=== PATIENT | male | born 1955 | race Caucasian/White ===

== ENCOUNTER 2020-05-05 06:41 | Outpatient (REF) | payer OTHER, SELFPAY ==
[2020-05-05 07:56] LABS: Basophils Absolute Auto 0.1 X10*3/uL (0.0-0.2); Basophils Percent Auto 0.4 % (0-2); Eosinophils Absolute Auto 0.4 X10*3/uL (0.0-0.4); Eosinophils Percent Auto 2.2 % (0-4); Hematocrit 45.4 % (42-52); Hemoglobin 15.3 g/dl (14.0-18.0); Imm Gran Abs Auto 0.03 X10*3/uL (0.00-0.03); Imm Gran Pct Auto 0.2 % (0.0-0.4); Lymphocytes Percent Auto 74.1 % (20-40); MANUAL DIFF FLAG SCAN; Mean Corpuscular HGB Conc 33.7 g/dl (31.0-36.0); Mean Corpuscular Hemoglobin 31.2 pg (27.0-33.0); Mean Corpuscular Volume 92.7 fL (80-98); Mean Platelet Volume 11.6 fL (9.4-12.4); Monocytes Absolute Auto 0.3 X10*3/uL (0.1-1.2); Monocytes Percent Auto 1.6 % (2-11); Neutrophils Absolute Auto 3.7 X10*3/uL (2.0-8.3); Neutrophils Percent Auto 21.5 % (45-73); Platelet Count 177 X10*3/uL (160-400); Red Cell Distribution Width 12.9 % (11.0-16.0); SCAN SMEAR FLAG 1; White Blood Count 17.1 X10*3/uL (4.8-10.8)
[2020-05-05 08:00] LABS: Lymphocytes Absolute Auto 12.7 X10*3/uL (1.2-4.9)
[2020-05-05 08:11] LABS: Alanine Aminotransferase 19 U/L (0-40); Albumin Level 4.6 g/dL (3.5-5.0); Alkaline Phosphatase 65 U/L (39-117); Anion Gap 12 (12-20); Aspartate Amino Transferase 15 U/L (5-37); Bilirubin Total 0.7 mg/dL (0.0-1.0); Blood Urea Nitrogen 17 mg/dL (9-16); Calcium 9.3 mg/dL (8.4-10.2); Carbon Dioxide 27 mmol/L (22-29); Chloride 107 mmol/L (96-108); Cholesterol 178 mg/dL; Estimated Glomerular Filt Rate > 60; Glucose Fasting 106 mg/dL (60-99); HDL Cholesterol 45 mg/dL; LDL Cholesterol Calculated 107 mg/dl; Potassium 4.4 mmol/l (3.3-5.1); Sodium 142 mmol/L (135-145); Total Protein 7.1 g/dL (6.5-8.0); Triglycerides 133 mg/dL
[2020-05-05 08:19] LABS: Glucose Urine UA NEG (NEG); Leukocyte Esterase Urine NEG (NEG); Nitrite Urine NEG (NEG); PH 5.5 (5.0-8.0); Specific Gravity - Urine 1.025 (1.005-1.025); Urine Blood NEG (NEG); Urine Ketones NEG (NEG); Urine Protein NEG (NEG-TRACE)
[2020-05-05 08:29] LABS: Appearance Urine CLEAR; Color Urine YELLOW
[2020-05-05 08:36] LABS: Prostate Specific Antigen Scr 1.28 ng/mL (<0.05-4.0)
[2020-05-05 10:51] LABS: SLIDE REVIEW VERIFIED
== END 2020-05-05 06:42 | disposition home or self-care (01) ==
LOC: HO.LAB 06:41
PROVIDERS: PCP Internal Medicine; Visit Provider Internal Medicine
DX: Z00.00 Encounter for general adult medical examination without abnormal findings (principal)
CPT/HCPCS: 36415; 80053; 80061; 81003; 84153; 85025

== ENCOUNTER 2020-05-29 16:19 | Outpatient (REF) | payer OTHER, SELFPAY ==
--- NOTE | 2020-05-29 | US_ITS ---
EXAMINATION: US VENOUS ULTRASOUND WITH DOPPLER LOWER EXTREMITY, LEFT CLINICAL INFORMATION: Edema at the knee. Pain of the knee. COMPARISON: None TECHNIQUE: Ultrasound of the deep veins is performed from the hip to the calf with compression sonography and color and pulse Doppler assessment. Spectral analysis with color-flow imaging is performed. FINDINGS: There is normal venous compression and respiratory variation and augmented flow. The visualized common femoral vein, superficial femoral vein, profunda femoral vein, popliteal vein, and the trifurcation region shows no evidence of deep venous thrombosis. There is a fluid collection at the knee posterior medial popliteal fossa measuring 3 x 1.5 x 3.5 cm If the patient's symptoms persist, followup ultrasound in 5 days 7 days might be of value to exclude proximal propagation from a non-visualized calf vein. US/US venous duplex LE LT IMPRESSION: 1. No DVT demonstrated in the left lower extremity. 2. Popliteal fossa cyst.
== END 2020-05-29 16:20 | disposition home or self-care (01) ==
LOC: HO.US 16:19
PROVIDERS: PCP Internal Medicine; Visit Provider Internal Medicine
DX: M25.562 Pain in left knee (principal); M25.462 Effusion, left knee
CPT/HCPCS: 93971

== ENCOUNTER 2020-06-22 16:05 | Outpatient (REF) | payer OTHER, SELFPAY ==
[2020-06-22 16:50] LABS: Influenza A PCR NEGATIVE (Negative); Influenza B PCR NEGATIVE (Negative); Resp Syncy Virus RNA Qual PCR NEGATIVE (Negative)
[2020-06-22 18:57] LABS: SARS COV2 PCR INHOUSE POSITIVE (Negative)
== END 2020-06-22 16:06 | disposition home or self-care (01) ==
LOC: HO.LNP 16:05
PROVIDERS: Visit Provider Internal Medicine
DX: Z20.828 Contact with and (suspected) exposure to other viral communicable diseases (principal); R05 Cough
CPT/HCPCS: 0241U

== ENCOUNTER 2021-01-26 06:58 | Day surgery (SDC) | payer OTHER, SELFPAY ==
[2021-01-26 07:20] VITALS: BP 141/86; PULSE 98; RESP 18; TEMP 37.2; O2SAT 95; BMI 31.1
--- NOTE | 2021-01-26 07:55 | HO.ANESPROP2 ---
PMFSH Past Medical History Medical History Hx of gout Surgical History Surgical History H/O colonoscopy History of meniscectomy of left knee Social History Social History Patient Tobacco Use Status: Former Tobacco user Use of substances other than those prescribed or required for medical reasons: No Are you DNR?: No Advance Directives: No Advance Directives Information Provided: Yes Meds Allergies Allergy/AdvReac Type Severity Reaction Status Date / Time doxycycline Allergy Severe Hives Verified 01/26/21 07:11 Active Medications: Current Medications Generic Name Dose Route Start Last Admin Trade Name Freq PRN Reason Stop Dose Admin Lactated Ringer's 500 mls @ 20 mls/hr 01/26/21 08:00 Lr IVCONT .Q24H CAR Exam Exam Date and Time: January 26, 2021 0755 Height,Weight and Vital Signs: Height 5 ft 10 in Weight 98.43 kg Last Vital Signs Temp 98.9 F 01/26/21 07:20 Pulse 98 01/26/21 07:20 Resp 18 01/26/21 07:20 BP 141/86 H 01/26/21 07:20 Pulse Ox 95 01/26/21 07:20 Airway Mallampati Class: II TM Dist: >3cm Neck ROM: Full Heart: RRR Lungs: CYA
[2021-01-26] MEDS: Lactated Ringers 500 ML 20 ML IVCONT (08:02)
--- NOTE | 2021-01-26 08:14 | MHC.SHP ---
Pre-Procedural Eval Section A Date of Service: 01/26/21 Section B Chief Complaint: screening Details of Present Illness: screening Relevant Family History (Specify if Yes): No Relevant Social History: None Present Medications: see Short Stay Collaborative assessment Medical History: No relevant PMH History of Previous Operations: No relevant previous surgery Allergies: Allergies Allergy/AdvReac Type Severity Reaction Status Date / Time doxycycline Allergy Severe Hives Verified 01/26/21 07:11 Review of Systems Sugical H&P ROS: Negative: Constitution, Cardiovascular, Respiratory, Neurological, Psychiatric, Hem-Onc, Allergic/Immunologic, Gastrointestinal, Genitourinary, Musculoskeletal, Integumentary, Endocrine and Eyes/Ears/Nose/Throat Exam Surgical H&P Exam: Normal: HEENT, Normal: Heart, Normal: Lungs, Normal: Extremities, Normal: Abdomen, Normal: Skin and Normal: Neurological Plan Diagnosis/Plan: Unchanged I have reviewed the history and physical and performed a pertinent physical examination on my patient. No changes have occurred unless specified.
[2021-01-26 08:37] VITALS: BP 112/68; PULSE 88; RESP 16; TEMP 36.1; O2SAT 93
--- NOTE | 2021-01-26 08:37 | PM.OP ---
Brief Operative Note Date of Service: 01/26/21 Pre-op diagnosis: screening Post-op diagnosis: same Procedure: colonoscopy Surgeon: Paulino Hess Anesthesia: MAC Was an Systems Support Officer used for this Procedure?: No Estimated blood loss (mL): 0 Pathology: none sent Condition: stable Disposition: PACU
[2021-01-26 08:52] VITALS: BP 129/88; PULSE 74; RESP 16; TEMP 36.1; O2SAT 94
--- NOTE | 2021-01-26 11:12 | HO.POSTANES ---
Post Anesthesia Evaluation Post Anesthesia Evaluation Vital Signs: Vital Signs Temp Pulse Resp BP Pulse Ox 01/26/21 08:52 97 F 74 16 129/88 94 01/26/21 08:37 97 F 88 16 112/68 93 01/26/21 07:20 98.9 F 98 18 141/86 H 95 Anesthesia: Monitored Mental Status: Awake Pain Control: Satisfactory Nausea/Vomiting: None Hydration: Adequate Anesthesia-Related Issues: No Anes. Related Issues
--- NOTE | 2021-01-26 18:58 | OP_ITS ---
SURGEON: Paulino Hess MD INDICATIONS: Colon cancer screening. PREOPERATIVE DIAGNOSIS: POSTOPERATIVE DIAGNOSIS: PROCEDURE PERFORMED: Colonoscopy to the terminal ileum. ESTIMATED BLOOD LOSS: COMPLICATIONS: ANESTHESIA: ASSISTANTS: SPECIMENS: MEDICATIONS: Monitored anesthesia care. DESCRIPTION OF PROCEDURE: History and physical performed. The risks and benefits of the procedure were explained to the patient. Informed consent was obtained. The patient was placed in the left lateral decubitus position. A digital rectal exam was performed and was found to be normal. The Olympus pediatric video colonoscope was introduced into the rectum and advanced to the cecum without difficulty. The cecum was identified by transillumination, palpation, and identification of ileocecal valve. Examination was performed. The scope was removed. He tolerated the procedure well and was taken to recovery area in stable condition. FINDINGS: The terminal ileum was normal. The visualized colonic mucosa was normal. The quality of the prep was good. No polyps were identified. There was pandiverticulosis. Retroflexed examination showed small internal hemorrhoids. IMPRESSION: Negative screening colonoscopy. RECOMMENDATION: 1. Follow up as needed. 2. Repeat colonoscopy is recommended in 10 years for average risk individuals. MD DIAMOND Fragoso/TONYL / [phone]
== END 2021-01-26 09:09 | disposition home or self-care (01) ==
PROVIDERS: PCP Internal Medicine; Visit Provider Internal Medicine Gastroenterology
PROC: 0DJD8ZZ Inspection of Lower Intestinal Tract, Via Natural or Artificial Opening Endoscopic (ICD-10-PCS; CPT 45378; principal; 2021-01-26 08:10)
DX: Z12.11 Encounter for screening for malignant neoplasm of colon (principal); K57.30 Diverticulosis of large intestine without perforation or abscess without bleeding; K64.8 Other hemorrhoids; Z79.899 Other long term (current) drug therapy; Z88.1 Allergy status to other antibiotic agents; Z87.891 Personal history of nicotine dependence
CPT/HCPCS: 45378

== ENCOUNTER 2022-04-12 06:54 | Outpatient (REF) | payer OTHER, SELFPAY ==
[2022-04-12 07:32] LABS: Basophils Absolute Auto 0.1 X10*3/uL (0.0-0.2); Basophils Percent Auto 0.4 % (0-2); Eosinophils Absolute Auto 0.3 X10*3/uL (0.0-0.4); Eosinophils Percent Auto 1.5 % (0-4); Hematocrit 44.9 % (42.0-52.0); Hemoglobin 15.6 g/dl (14.0-18.0); Imm Gran Abs Auto 0.03 X10*3/uL (0.00-0.03); Imm Gran Pct Auto 0.2 % (0.0-0.4); MANUAL DIFF FLAG SCAN; Mean Corpuscular HGB Conc 34.7 g/dl (31.0-36.0); Mean Corpuscular Hemoglobin 31.9 pg (27.0-33.0); Mean Corpuscular Volume 91.8 fL (80.0-98.0); Mean Platelet Volume 11.3 fL (9.4-12.4); Monocytes Absolute Auto 0.3 X10*3/uL (0.1-1.2); Monocytes Percent Auto 1.7 % (2-11); Neutrophils Absolute Auto 3.1 x10*3/uL (2.0-8.3); Neutrophils Percent Auto 19.2 % (45-73); Platelet Count 160 X10*3/uL (160-400); Red Blood Count 4.89 X10*6/uL (4.60-5.80); Red Cell Distribution Width 12.7 % (11.0-16.0); SCAN SMEAR FLAG 1; White Blood Count 16.3 X10*3/uL (4.8-10.8)
[2022-04-12 07:34] LABS: Lymphocytes Absolute Auto 12.5 X10*3/uL (1.2-4.9)
[2022-04-12 07:37] LABS: Estimated Average Glucose 97 mg/dL
[2022-04-12 07:59] LABS: Alanine Aminotransferase 29 U/L (0-40); Albumin Level 4.6 g/dL (3.5-5.0); Alkaline Phosphatase 72 U/L (39-117); Anion Gap 14 (12-20); Aspartate Amino Transferase 21 U/L (5-37); Blood Urea Nitrogen 15 mg/dL (9-16); Calcium 9.2 mg/dL (8.4-10.2); Carbon Dioxide 28 mmol/L (22-29); Chloride 104 mmol/L (96-108); Cholesterol 179 mg/dL; Estimated Glomerular Filt Rate > 60; Glucose Fasting 103 mg/dL (60-99); HDL Cholesterol 45 mg/dL; LDL Cholesterol Calculated 111 mg/dl; Potassium 4.6 mmol/L (3.3-5.1); Sodium 141 mmol/L (135-145); Total Protein 7.3 g/dL (6.5-8.0); Triglycerides 119 mg/dL
[2022-04-12 08:01] LABS: Appearance Urine Clear; Color Urine Yellow; Glucose Urine UA Negative (Negative); Leukocyte Esterase Urine Negative (Negative); Nitrite Urine Negative (Negative); PH 5.5 (5.0-9.0); UMIC TRIGGER UA YES; Urine Blood Negative (Negative); Urine Ketones Negative (Negative); Urine Protein Negative (Neg-Trace)
[2022-04-12 08:08] LABS: Lactate Dehydrogenase 179 U/L (118-273); Uric Acid 7.8 mg/dL (3.4-7.0)
[2022-04-12 08:12] LABS: SLIDE REVIEW VERIFIED
[2022-04-12 08:21] LABS: Prostate Specific Antigen 1.32 ng/mL (<0.05-4.0)
== END 2022-04-12 06:55 | disposition home or self-care (01) ==
LOC: HO.LAB 06:54
PROVIDERS: PCP Internal Medicine; Visit Provider Internal Medicine
DX: Z00.00 Encounter for general adult medical examination without abnormal findings (principal); Z12.5 Encounter for screening for malignant neoplasm of prostate; M10.9 Gout, unspecified
CPT/HCPCS: 36415; 80053; 80061; 81001; 81003; 83036; 83615; 84153; 84550; 85025

== ENCOUNTER 2022-05-03 14:07 | Outpatient (REF) | payer OTHER, SELFPAY ==
[2022-05-03 17:39] LABS: Lactate Dehydrogenase 241 U/L (118-273)
== END 2022-05-03 14:08 | disposition home or self-care (01) ==
LOC: HO.LAB 14:07
PROVIDERS: Pathology Anatomic Pathology & Clinical Pathology; PCP Internal Medicine; Visit Provider Internal Medicine Medical Oncology
DX: C91.10 Chronic lymphocytic leukemia of B-cell type not having achieved remission (principal); D47.9 Neoplasm of uncertain behavior of lymphoid, hematopoietic and related tissue, unspecified
CPT/HCPCS: 36415; 82232; 83615; 86335; 88184; 88185; 88275; 88374

== ENCOUNTER 2022-08-09 15:10 | Outpatient (REF) | payer OTHER, SELFPAY ==
[2022-08-09 15:21] LABS: MANUAL DIFF FLAG NO
[2022-08-09 16:02] LABS: Basophils Absolute Auto 0.1 X10*3/uL (0.0-0.2); Basophils Percent Auto 0.3 % (0-2); Eosinophils Absolute Auto 0.2 X10*3/uL (0.0-0.4); Eosinophils Percent Auto 1.5 % (0-4); Hematocrit 46.3 % (42.0-52.0); Hemoglobin 15.7 g/dl (14.0-18.0); Imm Gran Abs Auto 0.03 X10*3/uL (0.00-0.03); Imm Gran Pct Auto 0.2 % (0.0-0.4); Lymphocytes Percent Auto 71.2 % (20-40); Mean Corpuscular HGB Conc 33.9 g/dl (31.0-36.0); Mean Corpuscular Hemoglobin 30.9 pg (27.0-33.0); Mean Corpuscular Volume 91.1 fL (80.0-98.0); Mean Platelet Volume 11.8 fL (9.4-12.4); Monocytes Absolute Auto 0.3 X10*3/uL (0.1-1.2); Monocytes Percent Auto 2.1 % (2-11); Neutrophils Absolute Auto 3.8 x10*3/uL (2.0-8.3); Neutrophils Percent Auto 24.7 % (45-73); Platelet Count 177 X10*3/uL (160-400); Red Blood Count 5.08 X10*6/uL (4.60-5.80); Red Cell Distribution Width 12.8 % (11.0-16.0); SCAN SMEAR FLAG 1; White Blood Count 15.5 X10*3/uL (4.8-10.8)
[2022-08-09 16:12] LABS: Lymphocytes Absolute Auto 11.1 X10*3/uL (1.2-4.9)
[2022-08-09 16:32] LABS: Alanine Aminotransferase 19 U/L (0-40); Albumin Level 4.8 g/dL (3.5-5.0); Alkaline Phosphatase 69 U/L (39-117); Anion Gap 14 (12-20); Aspartate Amino Transferase 18 U/L (5-37); Bilirubin Total 0.8 mg/dL (0.0-1.0); Blood Urea Nitrogen 16 mg/dL (9-16); Calcium 10.2 mg/dL (8.4-10.2); Carbon Dioxide 27 mmol/L (22-29); Chloride 104 mmol/L (96-108); Estimated Glomerular Filt Rate > 60; Glucose Random 90 mg/dL (60-115); Potassium 4.4 mmol/L (3.3-5.1); Sodium 141 mmol/L (135-145); Total Protein 7.4 g/dL (6.5-8.0)
[2022-08-11 13:13] LABS: Beta-2 Microglobulin, Serum 2.04 mg/L (< OR = 2.51)
== END 2022-08-09 15:11 | disposition home or self-care (01) ==
LOC: HO.LAB 15:10
PROVIDERS: PCP Internal Medicine; Visit Provider Internal Medicine Medical Oncology
DX: D36.9 Benign neoplasm, unspecified site (principal)
CPT/HCPCS: 36415; 80053; 82232; 85025

== ENCOUNTER 2022-11-18 14:42 | Outpatient (REF) | payer OTHER, SELFPAY ==
[2022-11-18 14:58] LABS: MANUAL DIFF FLAG NO
[2022-11-18 15:30] LABS: Basophils Absolute Auto 0.1 X10*3/uL (0.0-0.2); Basophils Percent Auto 0.3 % (0-2); Eosinophils Absolute Auto 0.3 X10*3/uL (0.0-0.4); Eosinophils Percent Auto 1.9 % (0-4); Hematocrit 42.8 % (42.0-52.0); Hemoglobin 14.5 g/dl (14.0-18.0); Imm Gran Abs Auto 0.04 X10*3/uL (0.00-0.03); Imm Gran Pct Auto 0.3 % (0.0-0.4); Lymphocytes Percent Auto 71.1 % (20-40); Mean Corpuscular HGB Conc 33.9 g/dl (31.0-36.0); Mean Corpuscular Hemoglobin 31.4 pg (27.0-33.0); Mean Corpuscular Volume 92.6 fL (80.0-98.0); Mean Platelet Volume 11.8 fL (9.4-12.4); Monocytes Absolute Auto 0.4 X10*3/uL (0.1-1.2); Monocytes Percent Auto 2.8 % (2-11); Neutrophils Absolute Auto 3.5 x10*3/uL (2.0-8.3); Neutrophils Percent Auto 23.6 % (45-73); Platelet Count 148 X10*3/uL (160-400); Red Blood Count 4.62 X10*6/uL (4.60-5.80); Red Cell Distribution Width 13.2 % (11.0-16.0); SCAN SMEAR FLAG 1; White Blood Count 14.8 X10*3/uL (4.8-10.8)
[2022-11-18 15:35] LABS: Lymphocytes Absolute Auto 10.5 X10*3/uL (1.2-4.9)
[2022-11-18 16:00] LABS: Alanine Aminotransferase 20 U/L (0-40); Albumin Level 4.4 g/dL (3.5-5.0); Alkaline Phosphatase 71 U/L (39-117); Anion Gap 15 (12-20); Aspartate Amino Transferase 16 U/L (5-37); Bilirubin Total 0.8 mg/dL (0.0-1.0); Blood Urea Nitrogen 16 mg/dL (9-16); Calcium 9.2 mg/dL (8.4-10.2); Carbon Dioxide 27 mmol/L (22-29); Chloride 108 mmol/L (96-108); Estimated Glomerular Filt Rate > 60; Glucose Random 99 mg/dL (60-115); Potassium 4.8 mmol/L (3.3-5.1); Sodium 145 mmol/L (135-145); Total Protein 6.5 g/dL (6.5-8.0)
[2022-11-22 12:53] LABS: Beta-2 Microglobulin, Serum 1.76 mg/L (< OR = 2.51)
== END 2022-11-18 14:43 | disposition home or self-care (01) ==
LOC: HO.LAB 14:42
PROVIDERS: Visit Provider Internal Medicine Medical Oncology
DX: D72.820 Lymphocytosis (symptomatic) (principal); D36.9 Benign neoplasm, unspecified site
CPT/HCPCS: 36415; 80053; 82232; 85025

== ENCOUNTER 2023-03-24 14:25 | Outpatient (REF) | payer OTHER, SELFPAY ==
[2023-03-24 15:19] LABS: Basophils Absolute Auto 0.1 X10*3/uL (0.0-0.2); Basophils Percent Auto 0.5 % (0-2); Eosinophils Absolute Auto 0.2 X10*3/uL (0.0-0.4); Eosinophils Percent Auto 1.1 % (0-4); Hematocrit 43.9 % (42.0-52.0); Hemoglobin 15.4 g/dl (14.0-18.0); Imm Gran Abs Auto 0.03 X10*3/uL (0.00-0.03); Imm Gran Pct Auto 0.2 % (0.0-0.4); Lymphocytes Percent Auto 69.2 % (20-40); MANUAL DIFF FLAG SCAN; Mean Corpuscular HGB Conc 35.1 g/dl (31.0-36.0); Mean Corpuscular Hemoglobin 32.5 pg (27.0-33.0); Mean Corpuscular Volume 92.6 fL (80.0-98.0); Mean Platelet Volume 11.7 fL (9.4-12.4); Monocytes Absolute Auto 0.4 X10*3/uL (0.1-1.2); Monocytes Percent Auto 2.8 % (2-11); Neutrophils Absolute Auto 3.9 x10*3/uL (2.0-8.3); Neutrophils Percent Auto 26.2 % (45-73); Platelet Count 157 X10*3/uL (160-400); Red Blood Count 4.74 X10*6/uL (4.60-5.80); Red Cell Distribution Width 12.8 % (11.0-16.0); SCAN SMEAR FLAG 1; White Blood Count 14.9 X10*3/uL (4.8-10.8)
[2023-03-24 15:20] LABS: Lymphocytes Absolute Auto 10.3 X10*3/uL (1.2-4.9)
[2023-03-24 15:45] LABS: SLIDE REVIEW VERIFIED
[2023-03-24 15:47] LABS: Alanine Aminotransferase 26 U/L (0-40); Albumin Level 4.7 g/dL (3.5-5.0); Alkaline Phosphatase 67 U/L (39-117); Anion Gap 11 (12-20); Aspartate Amino Transferase 23 U/L (5-37); Bilirubin Total 0.7 mg/dL (0.0-1.0); Blood Urea Nitrogen 14 mg/dL (9-16); Calcium 9.7 mg/dL (8.4-10.2); Carbon Dioxide 27 mmol/L (22-29); Chloride 107 mmol/L (96-108); Estimated Glomerular Filt Rate > 60; Glucose Random 88 mg/dL (60-115); Potassium 4.2 mmol/L (3.3-5.1); Sodium 141 mmol/L (135-145); Total Protein 7.4 g/dL (6.5-8.0)
[2023-03-27 11:38] LABS: Beta-2 Microglobulin, Serum 1.75 mg/L (< OR = 2.51)
== END 2023-03-24 14:26 | disposition home or self-care (01) ==
LOC: HO.LAB 14:25
PROVIDERS: PCP Internal Medicine; Visit Provider Internal Medicine Medical Oncology
DX: C91.10 Chronic lymphocytic leukemia of B-cell type not having achieved remission (principal)
CPT/HCPCS: 36415; 80053; 82232; 85025

== ENCOUNTER 2023-08-04 14:24 | Outpatient (REF) | payer MEDICARE, OTHER, SELFPAY | END 2023-08-04 14:25 | disposition home or self-care (01) | LOC: HO.LAB 14:24 | PROVIDERS: PCP Internal Medicine; Visit Provider Internal Medicine Medical Oncology | DX: C91.10 Chronic lymphocytic leukemia of B-cell type not having achieved remission (principal); E66.9 Obesity, unspecified | CPT/HCPCS: 36415; 80053; 80061; 85007; 85025; 85027 ==

== ENCOUNTER 2024-03-01 10:48 | Outpatient (REF) | payer MEDICARE, OTHER, SELFPAY ==
[2024-03-01 12:01] LABS: Basophils Absolute Auto 0.1 X10*3/uL (0.0-0.2); Basophils Percent Auto 0.3 % (0-2); Eosinophils Absolute Auto 0.3 X10*3/uL (0.0-0.4); Eosinophils Percent Auto 1.5 % (0-4); Hematocrit 43.7 % (42.0-52.0); Hemoglobin 15.4 g/dl (14.0-18.0); Imm Gran Abs Auto 0.03 X10*3/uL (0.00-0.03); Imm Gran Pct Auto 0.2 % (0.0-0.4); MANUAL DIFF FLAG SCAN; Mean Corpuscular HGB Conc 35.2 g/dl (31.0-36.0); Mean Corpuscular Hemoglobin 32.4 pg (27.0-33.0); Mean Platelet Volume 11.5 fL (9.4-12.4); Monocytes Absolute Auto 0.5 X10*3/uL (0.1-1.2); Monocytes Percent Auto 2.6 % (2-11); Neutrophils Absolute Auto 2.9 x10*3/uL (2.0-8.3); Neutrophils Percent Auto 15.4 % (45-73); Platelet Count 169 X10*3/uL (160-400); Red Blood Count 4.75 X10*6/uL (4.60-5.80); Red Cell Distribution Width 13.1 % (11.0-16.0); SCAN SMEAR FLAG 1; White Blood Count 18.9 X10*3/uL (4.8-10.8)
[2024-03-01 12:04] LABS: Lymphocytes Absolute Auto 15.1 X10*3/uL (1.2-4.9)
[2024-03-01 12:30] LABS: SLIDE REVIEW VERIFIED
[2024-03-01 12:40] LABS: Alanine Aminotransferase 22 U/L (0-40); Albumin Level 4.5 g/dL (3.5-5.0); Alkaline Phosphatase 67 U/L (39-117); Anion Gap 11 (12-20); Aspartate Amino Transferase 17 U/L (5-37); Bilirubin Total 0.6 mg/dL (0.0-1.0); Blood Urea Nitrogen 15 mg/dL (9-16); Calcium 9.6 mg/dL (8.4-10.2); Carbon Dioxide 28 mmol/L (22-29); Chloride 108 mmol/L (96-108); Estimated Glomerular Filt Rate > 60; Glucose Random 103 mg/dL (60-115); Potassium 4.4 mmol/L (3.3-5.1); Sodium 143 mmol/L (135-145); Total Protein 7.1 g/dL (6.5-8.0)
[2024-03-04 10:39] LABS: Beta-2 Microglobulin, Serum 1.82 mg/L (< OR = 2.51)
== END 2024-03-01 10:49 | disposition home or self-care (01) ==
LOC: HO.LAB 10:48
PROVIDERS: PCP Internal Medicine Medical Oncology; Visit Provider Internal Medicine Medical Oncology
DX: C91.10 Chronic lymphocytic leukemia of B-cell type not having achieved remission (principal); E66.9 Obesity, unspecified
CPT/HCPCS: 36415; 80053; 82232; 85025

== ENCOUNTER 2024-08-08 14:59 | Outpatient (REF) | payer MEDICARE, OTHER, SELFPAY ==
[2024-08-08 15:32] LABS: Basophils Absolute Auto 0.1 X10*3/uL (0.0-0.2); Basophils Percent Auto 0.4 % (0-2); Eosinophils Absolute Auto 0.2 X10*3/uL (0.0-0.4); Eosinophils Percent Auto 1.1 % (0-4); Hematocrit 46.5 % (42.0-52.0); Hemoglobin 15.7 g/dl (14.0-18.0); Imm Gran Abs Auto 0.04 X10*3/uL (0.00-0.03); Imm Gran Pct Auto 0.2 % (0.0-0.4); Lymphocytes Percent Auto 73.5 % (20-40); MANUAL DIFF FLAG SCAN; Mean Corpuscular HGB Conc 33.8 g/dl (31.0-36.0); Mean Corpuscular Hemoglobin 31.7 pg (27.0-33.0); Mean Corpuscular Volume 93.8 fL (80.0-98.0); Mean Platelet Volume 10.9 fL (9.4-12.4); Monocytes Absolute Auto 0.4 X10*3/uL (0.1-1.2); Monocytes Percent Auto 2.3 % (2-11); Neutrophils Absolute Auto 3.7 x10*3/uL (2.0-8.3); Neutrophils Percent Auto 22.5 % (45-73); Platelet Count 166 X10*3/uL (160-400); Red Blood Count 4.96 X10*6/uL (4.60-5.80); Red Cell Distribution Width 13.2 % (11.0-16.0); SCAN SMEAR FLAG 1; White Blood Count 16.6 X10*3/uL (4.8-10.8)
[2024-08-08 15:44] LABS: Lymphocytes Absolute Auto 12.2 X10*3/uL (1.2-4.9)
[2024-08-08 16:22] LABS: Alanine Aminotransferase 31 U/L (0-40); Albumin Level 4.5 g/dL (3.5-5.0); Alkaline Phosphatase 68 U/L (39-117); Anion Gap 11 (12-20); Aspartate Amino Transferase 23 U/L (5-37); Bilirubin Total 0.7 mg/dL (0.0-1.0); Blood Urea Nitrogen 18 mg/dL (9-16); Calcium 9.3 mg/dL (8.4-10.2); Carbon Dioxide 29 mmol/L (22-29); Chloride 106 mmol/L (96-108); Estimated Glomerular Filt Rate > 60; Glucose Random 93 mg/dL (60-115); Potassium 4.6 mmol/L (3.3-5.1); Sodium 141 mmol/L (135-145); Total Protein 7.1 g/dL (6.5-8.0)
[2024-08-08 16:27] LABS: Uric Acid 7.7 mg/dL (3.4-7.0)
--- OUTSIDE RECORDS SUMMARY | 2024-08-08 16:45 | XMS_ITS ---
Author Organization Manav Espitia III, MD Address [address] [place] [address] Care Team Providers Care Non Clinical Advisor Name Role Phone Lennox Smith MD Primary Care Provider Unavaila Manav Cm Unavailable [phone] REASON FOR VISIT follow up Social History Sex Assigned At : Social History Observation Description Sex Assigned At Male Encounters Encounter Location Date Provider Diagnosis Manav Espitia III, MD [address] [place] [address] [place] [address] 02/23/2024 Manav Espitia Plan Of Treatment Next Appt Details Provider Name:Manav Espitia, 08/14/2024 10:45:00 AM, [address] [place] [address] [place], [address], Progress Notes * Darnell SANTIAGODOB:1955 (68 yo M)Acc No.[id number]:02/23/2024 Progress Notes Patient:?Darnell SANTIAGO Provider:?Manav Espitia MD :1955???Age:68 Y???Sex:Male Russ e:02/23/2024 Address:[id number] Pcp:Lennox Smith MD Subjective: * Chief Complaints: * ???1. Follow up. * Medical History:? Objective: * Vitals:? Assessment: Plan: * Treatment: * Images: * The named appointment provid er may or may not be the originator of this progress note, and it is not deemed complete until electronically signed by the appointment provider. Sign off status: Pending * Provider:?Manav Espitia MD Date:?01/29 Generated for Ludmila espinoza/Cristobal/Harry on:?08/08/2024 04:45 PM EST
--- OUTSIDE RECORDS SUMMARY | 2024-08-08 16:45 | XMS_ITS ---
Author Organization Manav Espitia III, MD Address [address] [place] [address] Care Team Providers Care Venture Capital Analyst Name Role Phone Lennox Smith MD Primary Care Provider Manav Arana Unavailable [phone] Allergies Allergen (clinical drug ingredient) Drug/Non Drug [...] Date Provider Diagnosis Manav Espitia III, MD [address] [place] [address] [place] [address] 07/10/2024 Manav Espitia Chronic lymphocytic leukemia C91.10 [...] DAY Oral Next Appt Details Provider Name:Manav Espitia, 08/14/2024 10:45:00 AM, [address] [place] [address] [place], [address], Progress Notes * STACEYDALYDarnell HyattDOB:1955 (68 yo M)Acc No.[id number]:07/10/2024 Progress Notes Patient:?Darnell SANTIAGO Provider:?Manav Espitia MD :1955???Age:68 Y???Sex:Male Russ e:07/10/2024 Address:[address] [place] [address] [address] [id number] Pcp:Lennox Smith MD Subjective: * Chief Complaints: * ???1. Follow up. * HPI: ???COVID-19 Screening:?Questions?Have you had any new onset fever, chills, cough, congestion, sore throat, shortness of breath, muscle aches??No ?Have you been exposed to the virus within the last 10 days??No ?Have you travelled internationally in the last 10 days??No ?Have you been exposed to COVID-19 in the past??No * ROS:?General/Constitutional:?pain?only normal aches and pains.?Chills?denies.?Fatigue?admits.?Fever?denies.?ENT:?Decreased hearing?denies.?Respiratory:?Cough?denies.?Cardiovascular:?Chest pain with exertion?denies.?Dyspnea on exertion?denies.?Shortness of breath?denies.?Gastrointestinal:?Constipation?denies.?Decreased appetite?denies.?Diarrhea?denies.?Heartburn?denies.?Nausea?denies.?Rectal bleeding?denies.?Vomiting?denies.?Hematology:?bruising?denies.?petechiae?denies.?Swollen glands?none have been noted.?Genitourinary:?Frequent urination?denies.?Musculoskeletal:?Muscle aches?denies.?Painful joints?denies.?Sciatica?denies.?Weakness?denies.?Skin:?Itching?denies.?Rash?denies.?Skin lesion(s)?denies.?Neurologic:?Difficulty speaking?denies.?Dizziness?denies.?Headache?denies.?Low back pain?denies.?Psychiatric:?Depressed mood?denies.? * Medical History:?Gout with h yperuricemia, Doxycycline allergy, Varicose veins, Umbilical hernia, Lymphocytosis, Osteoarthritis, Tubular adenomatous, Obesity, Varicose veins. * Surgical History:?Left knee meniscus surgery 2006, Colonoscopy, tubular adenoma, Dr. Manav Wilks, [facility] 12/2020. * Hospitalization/Major Diagno stic Procedure:?Denies Past Hospitalization. * Family History:?Father: dece ased 56 yrs, cad, in sleep, diagnosed with CVD.?Mother: 80 yrs, old age.?1 daughter(s) - healthy. .? His father at a young age of coronary artery disease. His mother of old age. There is no family history of gastrointestinal malignancy or lymphoproliferative disorders. He has 1 daughter who is healthy and well. * Social History:?Tobacco Use:?Tobacco Use/Smoking?Patient is a?former smoker ?How long has it been since you last smoked??> 10 years ?Additional Findings: Tobacco Non-User?Ex-cigarette smoker ???He was born in [facility] in [place], [place]. He is single now. His significant other recently leaving him with one stepdaughter, Aung, who is healthy and well. His daughter works in medical oncology at [employer]. 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 He does not smoke or drink. He is a former smoker. * Medications:?Taking Allopuri nol 300 MG Tablet TAKE 1 TABLET BY MOUTH EVERY DAY Oral , Medication List reviewed and reconciled with the patient * Allergies:?Doxycycline: hive s. Objective: * Vitals:? * Examination: ???General Examination: ?GENERAL APPEARANCE:?pleasant, well nourished, well developed, in no acute distress, calm and relaxed.?HEAD:?atraumatic, normocephalic.?EYES:?eomi, perrla, anicteric, conjugate.?EARS:?normal.?NOSE:?septum intact.?ORAL CAVITY:?normal, unremarkable.?NECK/THYROID:?no jugular venous distention, no carotid bruit, thyroid normal.?LYMPH NODES:?no enlarged lymph nodes,spleen normal.?SKIN:?no suspicious lesions, anicteric.?HEART:?no clicks, gallops, murmurs, or rubs, regular rhythm, S1, S2 normal, no s3, or vascular bruits.?LUNGS:?clear to auscultation .?BREASTS:??no masses palpable bilaterally.?ABDOMEN:?bowel sounds normal, no ascites, no organomegaly, no mass.?RECTAL EXAM:?not examined.?MUSCULOSKELETAL:?extremities unremarkable, no clubbing, cyanosis or edema.?PERIPHERAL PULSES:?normal.?NEUROLOGIC:?alert and oriented, cranial nerves 2-12 grossly intact, deep tendon reflexes 2+ symmetrical, motor strength normal upper and lower extremities, sensory exam intact.?PSYCH:?alert, oriented.? Assessment: * Assessment: 1.?Chronic lymphocytic leuke craig - C91.10???Notes :He remains stable at an early stage. No treatment is needed. Surveillance will continue. He is asymptomatic.??? Plan: * Treatment: * Images: * The named appointment provid er may or may not be the originator of this progress note, and it is not deemed complete until electronically signed by the appointment provider. Sign off status: Pending * Provider:?Manav Espitia MD Date:?06/30 Generated for Martini alexis/Cristobal/eTransmitting on:?08/08/2024 04:44 PM EST History and Physical Notes * HPI (History of Present Illness) Category Sub-Category Detail Notes COVID-19 Screening Questions Have you had any new onset fever, chills, cough, congestion, sore throat, shortness of breath, muscle aches?: No Have you been exposed to the virus withi n the last 10 days?: No Have you travelled internationally in [facility] last 10 days?: No Have you [...]
--- OUTSIDE RECORDS SUMMARY | 2024-08-08 16:45 | XMS_ITS ---
Author Organization Manav Espitia III, MD Address [address] [place] [address] Care Team Providers Care Solutions Executive Security Name Role Phone Lennox Smith MD Primary Care Provider Manav Arana Unavailable [phone] Allergies Allergen (clinical drug ingredient) Drug/Non Drug [...] Date Provider Diagnosis Manav Espitia III, MD [address] [place] [address] [place] [address] 03/06/2024 Manav Espitia Chronic lymphocytic leukemia C91.10 [...] Months, Reason: ov review labs Provider Name:Manav Espitia, 08/14/2024 10:45:00 AM, [address] [place] [address] [address], [place], [address], Progress Notes * Darnell SANTIAGO:1955 (68 yo M)Acc No.[id number]:03/06/2024 Progress Notes Patient:Darnell Randle Provider:?Manav Espitia MD :1955???Age:68 Y???Sex:Male Russ e:03/06/2024 Address:[facility] [place], [id number] Pcp:Lennox Smith MD Subjective: * Chief Complaints: * ???Chronic lymphocytic lymph omaGoutObesityUmbilical hernia * HPI: ???COVID-19 Screening:? He returns for ongoing follow-up of his CLL. He has no symptoms. He denies any abdominal pain fevers or chills or weight loss. On his examination today there was no adenopathy or splenomegaly. His blood work was unremarkable. Splenic blood cell count was slightly higher at 18,000. He is asymptomatic and will be observed. ?Questions?Have you experienced fever, chills, cough, sore throat, shortness of breath, difficulty breathing, muscle aches, loss of taste or smell??No ?Have you been exposed to the virus within the last 10 days??No ?Have you travelled internationally in the last 10 days??No ?Have you been exposed to COVID-19 in the past??Yes * ROS:?General/Constitutional:?pain?only normal aches and pains.?Chills?denies.?Fatigue?admits.?Fever?denies.?ENT:?Decreased hearing?denies.?Respiratory:?Cough?denies.?Cardiovascular:?Chest pain with exertion?denies.?Dyspnea on exertion?denies.?Shortness of breath?denies.?Gastrointestinal:?Constipation?occasional.?Decreased appetite?denies.?Diarrhea?denies.?Heartburn?denies.?Nausea?denies.?Rectal bleeding?denies.?Vomiting?denies.?Hematology:?bruising?denies.?petechiae?denies.?Swollen glands?none have been noted.?Genitourinary:?Frequent urination?once a night.?Musculoskeletal:?Muscle aches?denies.?Painful joints?denies.?Sciatica?denies.?Weakness?denies.?Skin:?Itching?denies.?Rash?denies.?Skin lesion(s)?denies.?Neurologic:?Difficulty speaking?denies.?Dizziness?denies.?Headache?denies.?Low back pain?denies.?Psychiatric:?Depressed mood?denies.? * Medical History:? * Surgical History:?Left knee meniscus surgery 2007Colonoscopy, tubular adenoma, Dr. Manav Wilks, [facility] 12/2020 * Hospitalization/Major Diagno stic Procedure:?Denies Past Hospitalization * Family History:?Father: dece ased 56 yrs, [...] Tobacco Non-User?Ex-cigarette smoker ???He was born in [facility] in [place], [place]. He is single now. His significant other recently leaving him with one stepdaughter, Aung, who is healthy and well. His daughter works in medical oncology at [employer]. 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 He does not smoke or drink. He is a former smoker. * Medications:?TakingAllopurin ol 300 MG Tablet TAKE 1 TABLET BY MOUTH EVERY DAY Oral Medication List reviewed and reconciled with the patientTaking Allopurinol 300 MG Tablet TAKE 1 TABLET BY MOUTH EVERY DAY Oral Medication List reviewed and reconciled with the patient * Allergies:?Doxycycline: hive sno[Allergies Verified] Objective: * Vitals:?Ht: 70, Wt:213, BMI: 30.56, BP:143/84, HR:75, Temp:98.4, Wt-k.62. * ???Past Orders: Lab:SLIDE REVIEW * Order Date 03/01/2024 03/24/2023 SLIDE REVIEW VERIFIED VERIFIED * Lab:Complete Blood Count Aut o Diff * Order Date 03/01/2024 03/24/2023 11/18/2022 White Blood Count 18.9?H (Ref Range: 4.8-10.8 X10*3/uL) 14.9?H (Ref Range: 4.8-10.8 X10*3/uL) 14.8?H (Ref Range: 4.8-10.8 X10*3/uL) Red Blood Count [...] Platelet Count 169 (Ref Range: 160-400 X10*3/uL) 157?L (Ref Range: 160-400 X10*3/uL) 148?L (Ref Range: 160-400 X10*3/uL) Mean Platelet Volume 11.5 (Ref Range: 9.4-12.4 fL) 11.7 (Ref Range: 9.4-12.4 fL) 11.8 (Ref Range: 9.4-12.4 fL) Neutrophils Percent Auto 15.4?L (Ref Range: 45-73 %) 26.2?L (Ref Range: 45-73 %) 23.6?L (Ref Range: 45-73 %) Imm Gran Pct Auto 0.2 (Ref Range: 0.0-0.4 %) 0.2 (Ref Range: 0.0-0.4 %) 0.3 (Ref Range: 0.0-0.4 %) Lymphocytes Percent Auto 80.0?H (Ref Range: 20-40 %) 69.2?H (Ref Range: 20-40 %) 71.1?H (Ref Range: 20-40 %) Monocytes Percent Auto [...] 0.00-0.03 X10*3/uL) 0.03 (Ref Range: 0.00-0.03 X10*3/uL) 0.04?H (Ref Range: 0.00-0.03 X10*3/uL) Lymphocytes Absolute Auto 15.1?H (Ref Range: 1.2-4.9 X10*3/uL) 10.3?H (Ref Range: 1.2-4.9 X10*3/uL) 10.5?H (Ref Range: 1.2-4.9 X10*3/uL) Monocytes Absolute Auto [...] 27 (Ref Range: 22-29 mmol/L) Anion Gap 11?L (Ref Range: 12-20) 11?L (Ref Range: 12-20) 15 (Ref Range: 12-20) [...] 9.2 (Ref Range: 8.4-10.2 mg/dL) * Examination: ???General Examination: ?GENERAL APPEARANCE:?pleasant, well nourished, well developed, in no acute distress, calm and relaxed , obese , man.?HEAD:?atraumatic, normocephalic.?EYES:?eomi, perrla, anicteric, conjugate.?EARS:?normal.?NOSE:?septum intact.?ORAL CAVITY:?normal, unremarkable, Walldyers ring is normal.?NECK/THYROID:?no jugular venous distention, no carotid bruit, thyroid normal.?LYMPH NODES:?no enlarged lymph nodes,spleen normal.?SKIN:?no suspicious lesions, anicteric.?HEART:?no clicks, gallops, murmurs, or rubs, regular rhythm, S1, S2 normal, no s3, or vascular bruits.?LUNGS:?clear to auscultation .?BREASTS:??no masses palpable bilaterally.?ABDOMEN:?bowel sounds normal, no ascites, no organomegaly, no mass , centripital obesity, Reducible moderate umbilical hernia.?RECTAL EXAM:?not examined.?MUSCULOSKELETAL:?extremities unremarkable, no clubbing, cyanosis or edema.?PERIPHERAL PULSES:?normal.?NEUROLOGIC:?alert and oriented, cranial nerves 2-12 grossly intact, deep tendon reflexes 2+ symmetrical, motor strength normal upper and lower extremities, sensory exam intact.?PSYCH:?alert, oriented.? Assessment: * Assessment: 1.?Chronic lymphocytic leuke craig - C91.10 (Primary), He remains stable at an early stage. No treatment is needed. Surveillance will continue. He is asymptomatic.?2.?Lymphocytosis - D72.820, The lymphocyte count is slightly higher. Was no indication for treatment at this time..?3.?Idiopathic chronic gout without tophus, unspecified site - M1A.00X0, He denies any recent episodes of gout. A uric acid level was requested in the next blood test.?4.?Obesity (BMI 30-39.9) - E66.9, His body mass index is 30. We discussed diet and nutrition today. We made a plan to lose weight at a rate of 1/2 of a pound per week.?5.?Umbilical hernia without obstruction and without gangrene - K42.9, The hernia is easily reducible and asymptomatic. We discussed the appropriate times for which to have attention rendered.?6.?Former smoker - Z87.891, We made a plan to prevent relapse in times of illness or stress.? Plan: * Treatment: 2.?Lymphocytosis?LAB: PROFILE, RANDOM (COMPREHENSIVE METABOLIC) ?LAB: URIC ACID ?LAB: CBC w DIFF 3.?Idiopathic chronic gout w ithout tophus, unspecified site?LAB: PROFILE, RANDOM (COMPREHENSIVE METABOLIC) ?LAB: URIC ACID ?LAB: CBC w DIFF * Procedure Codes:? * Preventive Medicine:? ??Counseling:?Care goal follow-up plan:?Counseling for abnormal BMI given?Yes ?Above Normal BMI Follow-up?Dietary management education, guidance, and counseling, Dietary needs education, Exercise promotion: strength training, Exercise promotion: stretching, Feeding regime, Giving encouragement to exercise, Lifestyle education regarding diet, Nutrition / feeding management, Nutrition therapy, Prescribed activity/exercise education, Prescribed diet education, Prescribed dietary intake, Special diet education, Weight monitoring , Intervention, Order not done: Medical or Other reason not done ?Smoking/Tobacco Use?Patient counseled on the dangers of tobacco use and urged to quit.?03/05/2024 * Follow Up:?4 Months (Reason: ov review labs) * Images: * Sign off status: Completed true * Provider:?Manav Espitia MD Date:?01/2024 Generated for Printi ng/Cristobal/eTransmitting on:?08/08/2024 04:45 PM EST History and Physical Notes * HPI (History of Present Illness) Category Sub-Category Detail Notes COVID-19 Screening Questions Have you had any new onset fever, chills, cough, congestion, sore throat, shortness of breath, muscle aches?: No Have you been exposed to the virus withi n the last 10 days?: No Have you travelled internationally in [facility] last 10 days?: No Have you [...]
--- OUTSIDE RECORDS SUMMARY | 2024-08-08 16:45 | XMS_ITS | Patient Health Record ---
Author Organization Manav Espitia III, MD Address [address] [place] [address] Care Team Providers Care Weapons Engineer Name Role Phone Lennox Smith MD Primary Care Provider Manav Arana Unavailable [phone] Allergies Allergen (clinical drug ingredient) Drug/Non Drug Allergy documented on EMR Reaction Allergy Type Onset Date Status doxycycline Doxycycline hives Drug Allergy Act [place] Results Component Value Reference Range Notes Complete Blood Count Auto Di ff Reviewed date:03/03/2024 05:55:52 AM Interpretation: Performing Lab:[facility], [address] [place] [phone] Notes/Report: White Blood Count 18.9 4.8-10.8 X10*3/uL Red Blood Count 4.75 4.60-5.80 X10*6/uL Hemoglobin 15.4 14.0-18.0 g/dl Hematocrit 43.7 42.0-52.0 % Mean Corpuscular Volume 92.0 80.0-98.0 fL Mean Corpuscular Hemoglobin 32.4 27.0-33.0 pg Mean Corpuscular HGB Conc 35.2 31.0-36.0 g/dl Red Cell Distribution Width 13.1 11.0-16.0 % Platelet Count 169 160-400 X10*3/uL Mean Platelet Volume 11.5 9.4-12.4 fL Neutrophils Percent Auto 15.4 45-73 % Imm Gran Pct Auto 0.2 0.0-0.4 % Lymphocytes Percent Auto 80.0 20-40 % Monocytes Percent Auto 2.6 2-11 % Eosinophils Percent Auto 1.5 0-4 % Basophils Percent Auto 0.3 0-2 % NRBC Pct Auto 0.0 0.0-0.2 /100WBC Neutrophils Absolute Auto 2.9 2.0-8.3 x10*3/u L Imm Gran Abs Auto 0.03 0.00-0.03 X10*3/uL Lymphocytes Absolute Auto 15.1 1.2-4.9 X10*3/u L Monocytes Absolute Auto 0.5 0.1-1.2 X10*3/uL Eosinophils Absolute Auto 0.3 0.0-0.4 X10*3/u L Basophils Absolute Auto 0.1 0.0-0.2 X10*3/uL NRBC Abs Auto 0.000 0.0-0.012 X10*3/uL White Blood Count 18.9 4.8-10.8 X10*3/uL Red Blood Count 4.75 4.60-5.80 X10*6/uL Hemoglobin 15.4 14.0-18.0 g/dl Hematocrit 43.7 42.0-52.0 % Mean Corpuscular Volume 92.0 80.0-98.0 fL Mean Corpuscular Hemoglobin 32.4 27.0-33.0 pg Mean Corpuscular HGB Conc 35.2 31.0-36.0 g/dl Red Cell Distribution Width 13.1 11.0-16.0 % Platelet Count 169 160-400 X10*3/uL Mean Platelet Volume 11.5 9.4-12.4 fL Neutrophils Percent Auto 15.4 45-73 % Imm Gran Pct Auto 0.2 0.0-0.4 % Lymphocytes Percent Auto 80.0 20-40 % Monocytes Percent Auto 2.6 2-11 % Eosinophils Percent Auto 1.5 0-4 % Basophils Percent Auto 0.3 0-2 % NRBC Pct Auto 0.0 0.0-0.2 /100WBC Neutrophils Absolute Auto 2.9 2.0-8.3 x10*3/u L Imm Gran Abs Auto 0.03 0.00-0.03 X10*3/uL Lymphocytes Absolute Auto 15.1 1.2-4.9 X10*3/u L Monocytes Absolute Auto 0.5 0.1-1.2 X10*3/uL Eosinophils Absolute Auto 0.3 0.0-0.4 X10*3/u L Basophils Absolute Auto 0.1 0.0-0.2 X10*3/uL NRBC Abs Auto 0.000 0.0-0.012 X10*3/uL CORRECTED REPORT CORRECTED REPORT Comprehensive Met. Panel Reviewed date:03/03/2024 05:55:52 AM Interpretation: Performing Lab:[facility], [address] [place] [phone] Notes/Report: Sodium 143 135-145 mmol/L Potassium 4.4 3.3-5.1 mmol/L Chloride 108 96-108 mmol/L Carbon Dioxide 28 22-29 mmol/L Anion Gap 11 12-20 Blood Urea Nitrogen 15 9-16 mg/dL Creatinine 0.96 0.5-1.4 mg/dL Estimated Glomerular Filt Rate > 60 NOTE: For -[place] individuals, multiply the result by 1.210. Chronic Kidney Disease: Estimated GFR < 60 mL/min/1.73m2 Severe Kidney Disease: Estimated GFR < 15 mL/min/1.73m2 Glucose Random 103 60-115 mg/dL Calcium 9.6 8.4-10.2 mg/dL Bilirubin Total 0.6 0.0-1.0 mg/dL Aspartate Amino Transferase 17 5-37 U/L Alanine Aminotransferase 22 0-40 U/L Total Protein 7.1 6.5-8.0 g/dL Albumin Level 4.5 3.5-5.0 g/dL Alkaline Phosphatase 67 39-117 U/L Beta-2 Microglobulin, Serum Reviewed date:03/17/2024 07:04:41 AM Interpretation: Performing Lab:[facility], [address] [place] [phone] Notes/Report: Beta-2 Microglobulin, Serum 1.82 < OR = 2.51 m g/L THIS TEST WAS PERFORMED AT: [facility] [address] [place] [phone] VIRGILIO ALEJANDRO MD SLIDE REVIEW Reviewed date:03/03/2024 05:55:52 AM Interpretation: Performing Lab:[facility], [address] [place] [phone] Notes/Report: SLIDE REVIEW VERIFIED Complete Blood Count Auto Di ff (Not yet reviewed by provider) Interpretation: Performing Lab:[facility], [address] [place] [phone] Notes/Report: White Blood Count 16.6 4.8-10.8 X10*3/uL Red Blood Count 4.96 4.60-5.80 X10*6/uL Hemoglobin 15.7 14.0-18.0 g/dl Hematocrit 46.5 42.0-52.0 % Mean Corpuscular Volume 93.8 80.0-98.0 fL Mean Corpuscular Hemoglobin 31.7 27.0-33.0 pg Mean Corpuscular HGB Conc 33.8 31.0-36.0 g/dl Red Cell Distribution Width 13.2 11.0-16.0 % Platelet Count 166 160-400 X10*3/uL Mean Platelet Volume 10.9 9.4-12.4 fL Neutrophils Percent Auto 22.5 45-73 % Imm Gran Pct Auto 0.2 0.0-0.4 % Lymphocytes Percent Auto 73.5 20-40 % Monocytes Percent Auto 2.3 2-11 % Eosinophils Percent Auto 1.1 0-4 % Basophils Percent Auto 0.4 0-2 % NRBC Pct Auto 0.0 0.0-0.2 /100WBC Neutrophils Absolute Auto 3.7 2.0-8.3 x10*3/u L Imm Gran Abs Auto 0.04 0.00-0.03 X10*3/uL Lymphocytes Absolute Auto 12.2 1.2-4.9 X10*3/u L Monocytes Absolute Auto 0.4 0.1-1.2 X10*3/uL Eosinophils Absolute Auto 0.2 0.0-0.4 X10*3/u L Basophils Absolute Auto 0.1 0.0-0.2 X10*3/uL NRBC Abs Auto 0.000 0.0-0.012 X10*3/uL CORRECTED REPORT Comprehensive Met. Panel (No t yet reviewed by provider) Interpretation: Performing Lab:[facility], [address] [place] [phone] Notes/Report: Sodium 141 135-145 mmol/L Potassium 4.6 3.3-5.1 mmol/L Chloride 106 96-108 mmol/L Carbon Dioxide 29 22-29 mmol/L Anion Gap 11 12-20 Blood Urea Nitrogen 18 9-16 mg/dL Creatinine 0.80 0.5-1.4 mg/dL Estimated Glomerular Filt Rate > 60 Chronic Kidney Disease: Estimated GFR < 60 mL/min/1.73m2 Severe Kidney Disease: Estimated GFR < 15 mL/min/1.73m2 Glucose Random 93 60-115 mg/dL Calcium 9.3 8.4-10.2 mg/dL Bilirubin Total 0.7 0.0-1.0 mg/dL Aspartate Amino Transferase 23 5-37 U/L Alanine Aminotransferase 31 0-40 U/L Total Protein 7.1 6.5-8.0 g/dL Albumin Level 4.5 3.5-5.0 g/dL Alkaline Phosphatase 68 39-117 U/L Uric Acid (Not yet reviewed by provider) Interpretation: Performing Lab:[facility], [address] [place] [phone] Notes/Report: Uric Acid 7.7 3.4-7.0 mg/dL Reason For Referral No Information Medications Medication SIG (Take, Route, Fr equency, [...] Additional Findings: Tobacco Non-User Ex-cigaret te smoker Alcohol Screen Question Answer Notes Did you have a drink contain ing alcohol in the past year? Yes How often did you have a dri nk containing alcohol in the past year? 2 to 4 times a month (2 points) How many drinks did you have on a typical day when you were drinking in the past year? 1 or 2 drinks (0 point) How often did you have 6 or more drinks on one occasion in the past year? Never (0 point) Points 2 Interpretation Negative Problems Problem Type SNOMED Code ICD Code Onset Dates Problem Status W/U Status Risk Notes Problem 2753595 Former smoker (Z87.891) Active confirmed We made a plan to prevent relapse in times of illness or stress. Problem 72443264 Lymphocytosis (D72.820) Active confirmed The lymphocyte count is slightly higher. Was no indication for treatment at this time.. Problem 169051001 Tubular adenoma (D36.9) Active confirmed He is scheduled to have colonoscopies every 5 years. He has no gastrointestinal symptoms at the current time. Problem 141104490 Obesity (BMI 30-39.9) (E66.9) Active confirmed His body mass index is 30. We discussed diet and nutrition today. We made a plan to lose weight at a rate of 1/2 of a pound per week. Problem 14654409 Chronic lymphocytic leukemia (C91.10) Active confirmed He remains stab le at an early stage. No treatment is needed. Surveillance will continue. He is asymptomatic. Problem 254694707 Umbilical hernia without obstruction and without gangrene (K42.9) Active confirmed The hernia is easily reducible and asymptomatic. We discussed the appropriate times for which to have attention rendered. Problem 759669845252622 Idiopathic chronic gout without tophus, unspecified site (M1A.00X0) Active confirmed He denies any recent episodes of gout. A uric acid level was requested in the next blood test. Vital Signs Heart Rate 75 /min 03/06/2024 Temperature 98.4 degrees Fahrenheit 03/06/2024 Blood pressure diastolic 84 mm Hg 03/06/2024 Height 70 in 03/06/2024 Blood pressure systolic 143 mm Hg 03/06/2024 Weight 213 lbs 03/06/2024 BMI 30.56 kg/m2 03/06/2024 Encounters Encounter Location Date Provider Diagnosis Manav Espitia III, MD [address] [place] [address] [address] [place] [phone] 08/25/2023 Manav Espitia Chronic lymphocytic leukemia C91.10 ; Obesity (BMI 30-39.9) E66.9 ; Idiopathic chronic gout without tophus, unspecified site M1A.00X0 ; Former smoker Z87.891 and Umbilical hernia without obstruction and without gangrene K42.9 Manav Espitia III, MD [address] [place] [address] [place] [address] 03/06/2024 Manav Douglasrne Chronic lymphocytic leukemia C91.10 ; Lymphocytosis D72.820 ; Idiopathic chronic gout without tophus, unspecified site M1A.00X0 ; Obesity (BMI 30-39.9) E66.9 ; Umbilical hernia without obstruction and without gangrene K42.9 and Former smoker Z87.891 Assessments Encounter Date Diagnosis (ICD Code) Assessment Notes Treat ment Notes Treatment Clinical Notes 08/25/2023 Obesity (BMI 30-39.9) (ICD-10 - E66.9) His body mass index is 30. We discussed diet and nutrition today. We made a plan to lose weight at a rate of 1/2 of a pound per week. 08/25/2023 Chronic lymphocytic leukemia (ICD-10 - C91.10) He remains stable at an early stage. No treatment is needed. Surveillance will continue. He is asymptomatic. 03/06/2024 Lymphocytosis (ICD-10 - D72.820) The lymphocyte count is slightly higher. Was no indication for treatment at this time.. 03/06/2024 Chronic lymphocytic leukemia (ICD-10 - C91.10) He remains stable at an early stage. No treatment is needed. Surveillance will continue. He is asymptomatic. 08/25/2023 Idiopathic chronic gout without tophus, unspecified site (ICD-10 - M1A.00X0) He has had no episodes of gout since his last visit. The allopurinol was continued. 03/06/2024 Idiopathic chronic gout without tophus, unspecified site (ICD-10 - M1A.00X0) He denies any recent episodes of gout. A uric acid level was requested in the next blood test. 08/25/2023 Former smoker (ICD-10 - Z87.891) We made a plan to prevent relapse in times of illness or stress. 03/06/2024 Obesity (BMI 30-39.9) (ICD-10 - E66.9) His body mass index is 30. We discussed diet and nutrition today. We made a plan to lose weight at a rate of 1/2 of a pound per week. 08/25/2023 Umbilical hernia without obstruction and without gangrene (ICD-10 - K42.9) The hernia is easily reducible and asymptomatic. We discussed the appropriate times for which to have attention rendered. 03/06/2024 Umbilical hernia without obstruction and without gangrene (ICD-10 - K42.9) The hernia is easily reducible and asymptomatic. We discussed the appropriate times for which to have attention rendered. 03/06/2024 Former smoker (ICD-10 - Z87.891) We made a plan to prevent relapse in times of illness or stress. Plan Of Treatment Pending Test Test Name Order Date PROFILE, FASTING (COMPREHENSIVE METABOLI C) 03/31/2023 PROFILE, RANDOM (COMPREHENSIVE METABOLIC ) 08/16/2022 PROFILE, RANDOM (COMPREHENSIVE METABOLIC ) 08/25/2023 PROFILE, RANDOM (COMPREHENSIVE METABOLIC ) 05/17/2022 PROFILE, RANDOM (COMPREHENSIVE METABOLIC ) 03/06/2024 URIC ACID 03/06/2024 LIPID PANEL 03/31/2023 LDH 05/03/2022 CBC w DIFF 03/31/2023 CBC w DIFF 03/06/2024 CBC w DIFF 08/16/2022 CBC w DIFF 05/17/2022 IGVH MUTATION 05/03/2022 IMMUNOFIXATION PANEL, SERUM (IEP) 2021 LEUKEMIA & LYMPHOMA EVAL (LLE) BLOOD 10/2021 BETA-2 MICROGLOBULIN, SERUM 05/17/2022 BETA-2 MICROGLOBULIN, SERUM 08/16/2022 FISH P53, DELETION 17p13.1 05/03/2022 CBC WITH AUTO DIFF 08/25/2023 Complete Blood Count Auto Diff Comprehensive Met. Panel 08/08/2024 Uric Acid 08/08/2024 Beta-2 Microglobulin, Serum 05/03/2022 Beta-2 Microglobulin, Serum 08/25/2023 FISH B Cell CLL 05/03/2022 Next Appt Details Provider Name:Manav Espitia, 08/14/2024 10:45:00 AM, [address] [place] [address] [address], [place], [address], Insurance Providers Payer Name Payer Address Payer Phone Subscriber Number Group Number Insured Name Patient Relationship to Insured Coverage Start Date Coverage End Date MEDICARE NGS [address] [place] [phone] [id number] JackDarnell Self - patient is the insured [address] [place] [phone] [id number] ShaylaakilahDarnell berry Self - patient is the insured Medical (General) History Medical History History ICD Code gout with hyperuricemia doxycycline allergy varicose veins umbilical hernia Lymphocytosis Osteoarthritis Tubular adenomatous Obesity Varicose veins Surgical History Surgery Date(Month/Year) Colonoscopy, tubular adenoma , Dr. Manav Wilks, [facility] 12/2020 Left knee meniscus surgery 2006
--- OUTSIDE RECORDS SUMMARY | 2024-08-08 16:46 | XMS_ITS | Patient Health Record ---
Author Organization [facility] Address [address] [place] [address] Care Team Providers Care Commutator Operator Name Role Phone Lennox Smith MD Primary Care Provider Unavaila Paulino Matos Jr Unavailable [phone] REASON FOR REFERRAL No Information MEDICATIONS Medication SIG (Take, Route, Frequency, Duration) Notes Start Date End Date Status Allopurinol 100 MG Orally A ctive Multivitamin Active MiraLax (colon prep) 8.3 ounce ((238) grams mixed with Gatorade or Crystal Light orally begin at 5:00 p.m. the day before the procedure for 1 day 12/16/2020 Active Fish Oil Active Arthritis Relief Act [place] Glucosamine-Chondroitin Active Apple Cider Vinegar Active Vitamin D3 Active Bromaline Active IMMUNIZATIONS Vaccine Route Administration Date Status Comme nts Influenza Unknown 05/13/2020 Administered SOCIAL HISTORY Tobacco Use: Social History Observation Description Date Details (start date - stop date) Never Smoker NA - NA Sex Assigned At : Social History Observation Description Sex Assigned At Unknown Tobacco Use/Smoking Question Answer Notes Patient is a nonsmoker Alcohol Screen Question Answer Notes Did you have a drink contain ing alcohol in the past year? Yes How often did you have a dri nk containing alcohol in the past year? 2 to 3 times a week (3 points) How often did you have 6 or more drinks on one occasion in the past year? Never (0 point) Points 3 Interpretation Negative PROBLEMS Problem Type ICD Code Onset Dates Problem Status W/U Status Risk SNOMED Code Notes Problem Colon cancer screening (Z12.11) Active confirmed 752093851 Problem Long-term current use of high risk medication other than anticoagulant (Z79.899) Active confirmed 474201950 Problem Encounter for other preprocedural examination (Z01.818) Active confirmed 304126554 PLAN OF TREATMENT Future Test Test Name Order Date COLONOSCOPY 12/16/2020 Insurance Providers Payer Name Payer Address Payer Phone Subscriber Number Group Number Insured Name Patient Relationship to Insured Coverage Start Date Coverage End Date [facility] [address] [facility] [place], [place] [phone] [id number] KERRI LANDAVERDE Self - patient is the insured MEDICAL (GENERAL) HISTORY Medical History History ICD Code gout Surgical History Surgery Date(Month/Year) Torn Nettie Left
[2024-08-08 17:01] LABS: SLIDE REVIEW VERIFIED
== END 2024-08-08 15:00 | disposition home or self-care (01) ==
LOC: HO.LAB 14:59
PROVIDERS: PCP Internal Medicine; Visit Provider Internal Medicine Medical Oncology
DX: C91.10 Chronic lymphocytic leukemia of B-cell type not having achieved remission (principal); D72.820 Lymphocytosis (symptomatic); M1A.00X0 Idiopathic chronic gout, unspecified site, without tophus (tophi)
CPT/HCPCS: 36415; 80053; 84550; 85025

== ENCOUNTER 2025-03-13 16:06 | Outpatient (REF) | payer MEDICARE, OTHER, SELFPAY ==
--- OUTSIDE RECORDS SUMMARY | 2025-03-13 16:09 | XMS_ITS | Patient Health Record ---
Author Organization Manav Espitia III, MD Address [address] [place] [address] Care Team Providers Care Straightening Machine Feeder Name Role Phone Lennox Smith MD Primary Care Provider Manav Arana Unavailable [phone] Allergies Allergen (clinical drug ingredient) Drug/Non Drug Allergy documented on EMR Reaction Allergy Type Onset Date Status doxycycline Doxycycline hives Drug Allergy Act hamilton Results Component Value Reference Range Notes Complete Blood Count Auto Di ff Reviewed date:08/10/2024 09:01:01 PM Interpretation: Performing Lab:[facility], [address] [place] [phone] Notes/Report: White Blood Count 16.6 4.8-10.8 X10*3/uL [...] Auto 0.000 0.0-0.012 X10*3/uL White Blood Count 16.6 4.8-10.8 X10*3/uL Red [...] REPORT CORRECTED REPORT Comprehensive Met. Panel Reviewed date:08/10/2024 09:01:01 PM Interpretation: Performing Lab:[facility], [address] [place] [phone] Notes/Report: Sodium 141 135-145 mmol/L Potassium 4.6 [...] Alkaline Phosphatase 68 39-117 U/L Uric Acid Reviewed date:08/10/2024 09:01:01 PM Interpretation: Performing Lab:[facility], [address] [place] [phone] Notes/Report: Uric Acid 7.7 3.4-7.0 mg/dL SLIDE REVIEW Reviewed date:08/10/2024 09:01:01 PM Interpretation: Performing Lab:[facility], [address], [place] [address] Notes/Report: SLIDE REVIEW VERIFIED Reason For Referral No Information Medications Medication [...] Problem Status W/U Status Risk Notes Problem 5156484 Former smoker (Z87.891) Active confirmed We made a plan to prevent relapse in times of illness or stress. Problem 76322078 Lymphocytosis (D72.820) Active confirmed Lymphocytosis i s stable. He is asymptomatic. There is no peripheral adenopathy or splenomegaly. Observation was continued. Problem 182589178 Tubular adenoma (D36.9) Active confirmed He is scheduled to have colonoscopies every 5 years. He has no gastrointestinal symptoms at the current time. Problem 493740850 Obesity (BMI 30-39.9) (E66.9) Active confirmed We have discuss ed his diet and nutrition today. We reviewed his weight loss strategy. We made a plan to lose weight at a rate of one half of a pound per week through a diet restricted in fat calories and sodium combined with regular physical activity. Problem 29815447 Chronic lymphocytic leukemia (C91.10) Active confirmed He remains stab le at an early stage. No treatment is needed. Surveillance will continue. He is asymptomatic. Problem 528473226 Umbilical hernia without obstruction and without gangrene (K42.9) Active confirmed The hernia is easily reducible and asymptomatic. We discussed the appropriate times for which to have attention rendered. Problem 560014413529234 Idiopathic chronic gout without tophus, unspecified site (M1A.00X0) Active confirmed He says he has not had gout recently. His uric acid level was 7.7.We discussed the rationale for treating him. I have referred him back to primary care or treatment of his hyperuricemia. He did not wish to begin any a new therapy today Vital Signs Heart Rate 80 /min 08/14/2024 Temperature 97.4 degrees Fahrenheit 08/14/2024 Blood pressure diastolic 80 mm Hg 08/14/2024 Height 70 in 08/14/2024 Blood pressure systolic 140 mm Hg 08/14/2024 Weight 217 lbs 08/14/2024 BMI 31.13 kg/m2 08/14/2024 Encounters Encounter Location Date Provider Diagnosis Manav Espitia III, MD [address] [place] [address] [address] [facility] [place] [address] 08/14/2024 Manav Espitia Chronic lymphocytic leukemia C91.10 ; Obesity (BMI 30-39.9) E66.9 ; Lymphocytosis D72.820 ; Idiopathic chronic gout without tophus, unspecified site M1A.00X0 and Former smoker Z87.891 Assessments Encounter Date Diagnosis (ICD Code) Assessment Notes Treat ment Notes Treatment Clinical Notes 08/14/2024 Obesity (BMI 30-39.9) (ICD-10 - E66.9) We have discussed his diet and nutrition today. We reviewed his weight loss strategy. We made a plan to lose weight at a rate of one half of a pound per week through a diet restricted in fat calories and sodium combined with regular physical activity. 08/14/2024 Chronic lymphocytic leukemia (ICD-10 - C91.10) He remains stable at an early stage. No treatment is needed. Surveillance will continue. He is asymptomatic. 08/14/2024 Lymphocytosis (ICD-10 - D72.820) Lymphocytosis is [...] ) 08/25/2023 PROFILE, RANDOM (COMPREHENSIVE METABOLIC ) 08/14/2024 PROFILE, RANDOM (COMPREHENSIVE METABOLIC ) 05/17/2022 PROFILE, RANDOM (COMPREHENSIVE METABOLIC ) 03/06/2024 URIC ACID 03/06/2024 LIPID PANEL 03/31/2023 LDH 05/03/2022 LDH 08/14/2024 CBC w DIFF 03/31/2023 CBC w DIFF 03/06/2024 CBC w DIFF 08/16/2022 CBC w DIFF 05/17/2022 SED RATE (ESR) 08/14/2024 IGVH MUTATION 05/03/2022 IMMUNOFIXATION PANEL, SERUM (IEP) 2021 LEUKEMIA & LYMPHOMA EVAL (LLE) BLOOD 10/2021 BETA-2 MICROGLOBULIN, SERUM 05/17/2022 BETA-2 MICROGLOBULIN, SERUM 08/16/2022 FISH P53, DELETION 17p13.1 05/03/2022 CBC WITH AUTO DIFF 08/14/2024 CBC WITH AUTO DIFF 08/25/2023 Uric Acid 08/14/2024 Beta-2 Microglobulin, Serum 05/03/2022 Beta-2 Microglobulin, Serum 08/25/2023 FISH B Cell CLL 05/03/2022 Next Appt Details Provider Name:Manav Espitia, 03/19/2025 09:45:00 AM, [address] [place] [address] [address], [facility] [place] [address], Insurance Providers Payer Name Payer Address Payer Phone Subscriber Number Group Number Insured Name Patient Relationship to Insured Coverage Start Date Coverage End Date MEDICARE NGS [address] [place] [phone] [id number] Darnell Santiago Self - patient is the insured HEALTH [address] [place] [address] [id number] Darnell Santiago Self - patient is the insured Medical (General) History Medical History History ICD Code gout with hyperuricemia doxycycline allergy varicose veins umbilical hernia Lymphocytosis Osteoarthritis Tubular adenomatous Obesity Varicose veins Surgical History Surgery Date(Month/Year) Colonoscopy, tubular adenoma , Dr. Manav Wilks, [facility] 12/2020 Left knee meniscus surgery 2006
--- OUTSIDE RECORDS SUMMARY | 2025-03-13 16:09 | XMS_ITS | Patient Health Record ---
Author Organization [facility] Address [address] [place] [address] Care Team Providers Care Securities And Real Estate Director Name Role Phone Luis (RETIRED) Lennox MABRY Primary Care Provide Paulino Ulloa Jr Unavailable Reason For Referral No Information Medications Medication SIG (Take, Route, Frequency, Duration) Notes [...] Vinegar Active Vitamin D3 Active Bromaline Active Immunizations Vaccine Route Administration Date Status Comme nts Influenza Unknown 05/13/2020 Administered Social History Tobacco Use: Social History Observation Description Date Details (start date - stop date) Never Smoker NA - NA Tobacco Use/Smoking Question Answer Notes Patient is [...] Never (0 point) Points 3 Interpretation Negative Problems Problem Type SNOMED Code ICD Code Onset Dates Problem Status W/U Status Risk Notes Problem 245836696 Colon cancer screening (Z12.11) Active confirmed Problem 267189086 Encounter for other preprocedural examination (Z01.818) Active confirmed Problem 095542367 Long-term curren t use of high risk medication other than anticoagulant (Z79.899) Active confirmed Plan Of Treatment Future Test Test Name Order Date COLONOSCOPY 12/16/2020 Insurance Providers Payer Name Payer Address Payer Phone Subscriber Number Group Number Insured Name Patient Relationship to Insured Coverage Start Date Coverage End Date [facility] [address] [place] [address] [phone] [id number] KERRI LANDAVERDE Self - patient is the insured Medical (General) History Medical History History ICD Code gout Surgical History Surgery Date(Month/Year) [place] Left
[2025-03-13 17:07] LABS: Hematocrit 43.7 % (42.0-52.0); Hemoglobin 15.4 g/dl (14.0-18.0); Imm Gran Abs Auto 0.04 X10*3/uL (0.00-0.03); Imm Gran Pct Auto 0.2 % (0.0-0.4); MANUAL DIFF FLAG SCAN; Mean Corpuscular HGB Conc 35.2 g/dl (31.0-36.0); Mean Corpuscular Hemoglobin 32.4 pg (27.0-33.0); Mean Corpuscular Volume 92.0 fL (80.0-98.0); NRBC Abs Auto 0.020 X10*3/uL (0.0-0.012); NRBC Pct Auto 0.1 /100WBC (0.0-0.2); Platelet Count 161 X10*3/uL (160-400); Red Blood Count 4.75 X10*6/uL (4.60-5.80); SCAN SMEAR FLAG 1; White Blood Count 16.1 X10*3/uL (4.8-10.8)
[2025-03-13 17:12] LABS: Lymphocytes Absolute Auto 12.0 X10*3/uL (1.2-4.9)
[2025-03-13 17:31] LABS: Alanine Aminotransferase 24 U/L (0-40); Albumin Level 4.6 g/dL (3.5-5.0); Alkaline Phosphatase 76 U/L (39-117); Anion Gap 13 (12-20); Aspartate Amino Transferase 22 U/L (5-37); Blood Urea Nitrogen 16 mg/dL (9-16); Calcium 9.1 mg/dL (8.4-10.2); Carbon Dioxide 27 mmol/L (22-29); Chloride 107 mmol/L (96-108); Estimated Glomerular Filt Rate > 60; Potassium 4.0 mmol/L (3.3-5.1); Sodium 143 mmol/L (135-145); Total Protein 7.0 g/dL (6.5-8.0); Uric Acid 6.3 mg/dL (3.4-7.0)
== END 2025-03-13 16:07 | disposition home or self-care (01) ==
LOC: HO.LAB 16:06
PROVIDERS: PCP Internal Medicine Medical Oncology; Visit Provider Internal Medicine Medical Oncology
DX: C91.10 Chronic lymphocytic leukemia of B-cell type not having achieved remission (principal); M1A.00X0 Idiopathic chronic gout, unspecified site, without tophus (tophi); E66.9 Obesity, unspecified
CPT/HCPCS: 36415; 80053; 83615; 84550; 85025; 85652

== ENCOUNTER 2025-04-24 15:55 | Outpatient (REF) | payer MEDICARE, OTHER, SELFPAY ==
[2025-04-24 17:18] LABS: Hemoglobin A1C 140.5045 umol/L
[2025-04-24 17:48] LABS: Cholesterol 214 mg/dL (<200); HDL Cholesterol 62 mg/dL (>40); Triglycerides 191 mg/dL (<150)
== END 2025-04-24 15:56 | disposition home or self-care (01) ==
LOC: HO.LAB 15:55
PROVIDERS: PCP Student in an Organized Health Care Education/Training Program; Visit Provider Student in an Organized Health Care Education/Training Program
DX: Z76.89 Persons encountering health services in other specified circumstances (principal); E78.49 Other hyperlipidemia; I10 Essential (primary) hypertension; M1A.9XX0 Chronic gout, unspecified, without tophus (tophi); C91.10 Chronic lymphocytic leukemia of B-cell type not having achieved remission; N52.9 Male erectile dysfunction, unspecified; Z79.899 Other long term (current) drug therapy
CPT/HCPCS: 36415; 80061; 83036; 84443; 96127; 99202

== ENCOUNTER 2025-04-24 15:55 | Outpatient (AMB) | payer MEDICARE, OTHER, SELFPAY ==
--- OUTSIDE RECORDS SUMMARY | 2024-03-06 06:30 | XMS_ITS ---
Author Organization Manav Espitia III, MD Address [address] [place] [address] Care Team Providers Care Creative Arts Therapist Name Role Phone Lennox Smith MD Primary Care Provider Unavaila Dr. Manav Cm III Unavailable [phone] Allergies Allergen (clinical drug ingredient) Drug/Non Drug [...] Date Provider Diagnosis Manav Espitia III, MD [address] [place] [address] [place] [address] 03/06/2024 Manav Espitia Chronic lymphocytic leukemia C91.10 [...] Provider Name:Manav Espitia , 09/19/2025 09:30:00 AM, [address] [place] [address] [address], [place], [address], Progress Notes * Darnell SANTIAGO:1955 (68 yo M)Acc No.[id number]:03/06/2024 Progress Notes Patient: Darnell Meyers Provider: Roseline Espitia MD :1955 A ge:68 Y S ex:Male Date:03/06/2024 Address:[facility] [place], [id number] Pcp:Lennox Smith MD Subjective: * Chief Complaints: [...] surgery 2007Colonoscopy, tubular adenoma, Dr. Manav Wilks, [facility] 12/2020 * Hospitalization/Major Diagno stic Procedure: D [...] x-cigarette smoker Landen kay was born in [facility] in [place], [place]. He is single now. His significant other recently leaving him with one stepdaughter, Aung, who is healthy and well. His daughter works in medical oncology at [employer]. 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 He does not smoke or drink. [...] 0 03/06/2024 Generated for Ludmila espinoza/Cristobal/Hoangitting on: 0 04/24/2025 07:50 PM EDT History and Physical Notes * HPI (History of Present Illness) Category Sub-Category Detail Notes COVID-19 Screening Questions Have you had any new onset fever, chills, cough, congestion, sore throat, shortness of breath, muscle aches?: No Have you been exposed to the virus withi n the last 10 days?: No Have you travelled internationally in [facility] last 10 days?: No Have you been [...]
--- OUTSIDE RECORDS SUMMARY | 2024-07-10 13:15 | XMS_ITS ---
Author Organization Manav Espitia III, MD Address [address] [address] Care Team Providers Care Drop Board Man Name Role Phone Lennox Smith MD Primary [...] Date Provider Diagnosis Manav Espitia III, MD [address] [place] [address] DR ALAN [place] [address] 07/10/2024 Manav Espitia Chronic lymphocytic leukemia C91.10 [...] Provider Name:Manav Douglasrne , 09/19/2025 09:30:00 AM, [address] [place] [address] DRWAQ[address], [facility] [place], [address], Progress Notes * Darnell SANTIAGODOB:1955 (69 yo M)Acc No.[id number]:07/10/2024 Progress Notes Patient: Darnell SALGADO Provider: Roseline Espitia MD :1955 A ge:68 Y S ex:Male Date:07/10/2024 Address:[address] [place] [address] [address] [id number] Pcp:Lennox Smith MD Subjective: * Chief Complaints: [...] 2006, Colonoscopy, tubular adenoma, Dr. Manav Wilks, [facility] 12/2020. * Hospitalization/Major Diagno stic Procedure: [...] x-cigarette smoker Landen kay was born in [facility] in [place], [place]. He is single now. His significant other recently leaving him with one stepdaughter, Aung, who is healthy and well. His daughter works in medical oncology at [employer]. 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 He does not smoke or drink. [...] Espitia MD Date: 09/10/2023 Generated for Ludmila espinoza/Cristobal/eTransmitting on: 0 04/24/2025 07:50 PM EDT History [...]
--- OUTSIDE RECORDS SUMMARY | 2024-08-14 05:45 | XMS_ITS ---
Author Organization Manav Espitia III, MD Address [address] [place] [address] Care Team Providers Care Endoscopy Specialty Technician Name Role Phone Lennox Smith MD Primary [...] Date Provider Diagnosis Manav Espitia III, MD [address] [place] [address] [place] [address] 08/14/2024 Manav Espitia Chronic lymphocytic leukemia C91.10 [...] Provider Name:Manav Espitia , 09/19/2025 09:30:00 AM, [address] [place] [address] [place] [place], [place], [address], Progress Notes * Darnell SANTIAGO:1955 (68 yo M)Acc No.[id number]:08/14/2024 Progress Notes Patient: Darnell SALGADO Provider: Roseline Espitia MD :1955 A ge:68 Y S ex:Male Date:08/14/2024 Address:[facility] [place], [id number] Pcp:Lennox Smith MD Subjective: * Chief Complaints: [...] surgery 2007Colonoscopy, tubular adenoma, Dr. Manav Wilks, [facility] 12/2020 * Hospitalization/Major Diagno stic Procedure: [...] x-cigarette smoker Landen kay was born in [facility] in [place], [place]. He is single now. His significant other recently leaving him with one stepdaughter, Aung, who is healthy and well. His daughter works in medical oncology at [employer]. 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 He does not smoke or drink. [...] 0 08/14/2024 Generated for Printi ng/Faguillermog/eTransmitting on: 0 04/24/2025 07:50 PM EDT History [...]
--- OUTSIDE RECORDS SUMMARY | 2025-02-12 13:15 | XMS_ITS ---
Author Organization Manav Espitia III, MD Address [address] [place] [address] Care Team Providers Care Press Department Manager Name Role Phone Lennox Smith MD Primary [...] Date Provider Diagnosis Manav Espitia III, MD [address] [place] [address] DR ALAN Bri [place] [address] 02/12/2025 Manav Espitia Chronic lymphocytic leukemia C91.10 [...] Provider Name:Manav Postne , 09/19/2025 09:30:00 AM, [address] [place] [address] [address]WAQAS, [place], [address], Progress Notes * Darnell SANTIAGODOB:1955 (69 yo M)Acc No.[id number]:02/12/2025 Progress Notes Patient: Darnell SALGADO Provider: Roseline Espitia MD :1955 A ge:69 Y S ex:Male Date:02/12/2025 Address:[address] [place] [address] [place], [id number] Pcp:Lennox Smith MD Subjective: * Chief Complaints: [...] 2006, Colonoscopy, tubular adenoma, Dr. Manav Wilks, [facility] 12/2020. * Hospitalization/Major Diagno stic Procedure: [...] x-cigarette smoker Landen kay was born in [facility] in [place], [place]. He is single now. His significant other recently leaving him with one stepdaughter, Aung, who is healthy and well. His daughter works in medical oncology at [employer]. 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 [...] Espitia MD Date: 0 02/12/2025 Generated for Ludmila espinoza/Cristobal/eTransmitting on: 0 04/24/2025 [...]
--- OUTSIDE RECORDS SUMMARY | 2025-03-19 05:45 | XMS_ITS ---
Author Organization Manav Espitia III, MD Address [address] [place] [address] Care Team Providers Care Screen Making Supervisor Name Role Phone Lennox Smith MD Primary Care Provider Unavaila Dr. Manav Cm III Unavailable [phone] Allergies Allergen (clinical drug ingredient) Drug/Non Drug [...] Provider Diagnosis Manav Espitia III, MD [address] [place] [address] [place] [address] 03/19/2025 Manav Espitia Chronic lymphocytic leukemia C91.10 [...] Provider Name:Manav Espitia , 09/19/2025 09:30:00 AM, [address] [place] [address] [address], [place], [address], Progress Notes * Darnell SANTIAGO:1955 (69 yo M)Acc No.[id number]:03/19/2025 Progress Notes Patient: Darnell SALGADO Provider: Roseline Espitia MD :1955 A ge:69 Y S ex:Male Date:03/19/2025 Address:[facility] [place], [id number] Pcp:Lennox Smith MD Subjective: * Chief Complaints: [...] surgery 2007Colonoscopy, tubular adenoma, Dr. Manav Wilks, [facility] 12/2020 * Hospitalization/Major Diagno stic Procedure: [...] x-cigarette smoker Landen kay was born in [facility] in [place], [place]. He is single now. His significant other recently leaving him with one stepdaughter, Aung, who is healthy and well. His daughter works in medical oncology at [employer]. 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 He does not smoke or drink. [...] Time - 03/13/2025 04:16 PM)?ValueReference Range?Erythrocyte Sedimentation [id number] - MM/HR * Lab:Comprehensive Met. Panel * [...] Espitia MD Date: 0 03/19/2025 Generated for Martini ng/Cristobal/eTransmitting on: 0 04/24/2025 07:49 PM EDT History and Physical Notes * [...]
--- NOTE | 2025-04-24 15:55 | A.OFFPC_ITS ---
Vital Signs 04/24/25 16:05 Height 5 ft 10 in Weight 214 lb BMI 30.7 BP 150/84 H Blood Pressure Location Lt brachial Position Sitting Respiration 18 Pulse 102 H Pulse Source Pulse Oximeter Temp 97.9 F Temp Source Temporal Artery Scan Pulse Oximetry (%) 97 Oxygen Delivery Method Room Air Intake Visit Reasons: MICHAEL/ Dr Smith Director Emergency Services Required: No Accompanied by: Self / Same As Patient Allergies doxycycline Allergy (Severe, Verified 04/24/25 15:56) Hives Medication List - Last Reconciled 04/24/25 by Antonio Osborn MD allopurinol 300 mg PO DAILY magnesium 200 mg PO DAILY multivitamin 1 tab PO DAILY vitamin B complex 1 cap PO DAILY Tobacco use date assessed: 04/24/25 Fall risk assessment: No Falls in past year Last assessed Fall Risk: 04/24/25 Dental Screening Dental Screen Date: 04/24/25 Did you have a dental visit in the last 12 months?: No Did you have a dental problem in the last 6 months where you did not have access to dental care?: No Was dental information given to patient?: Patient has dentist HPI HPI Comments History of Present Illness Details The patient is a 69-year-old male presenting for a new patient visit for the management of chronic conditions and routine health maintenance. The patient has a past medical history of gout managed with allopurinol 300 mg, hyperlipidemia, and is currently being monitored for chronic lymphocytic leukemia (CLL) by Dr. Espitia with no active treatment required at present. The patient reports having white coat hypertension, a condition previously diagnosed by Dr. Espitia and typically managed through repeated blood pressure checks after relaxation. Historically, the patient was diagnosed with hyperlipidemia with a recent cholesterol panel dated August 23 showing elevated triglycerides and increased LDL levels. There is a noted family history of heart conditions. He also has a history of a meniscus tear in the right knee, attributed to his active lifestyle involving sports. His surgical history includes meniscus rodriguez rgery on the right knee, and he reports experiencing tightness in the tendons near his knee that requires exercises. The patient denied any new surgeries or injuries. 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 The patient has been experiencing occasional discomfort in the belly button area, described as occasional and not currently bothersome according to Dr. Jordan? evaluation. The concern about this region was more about cosmetic appearance than any acute medical issues. The patient requested a prescription for Viagra, noting a new relationship and past use of the medication through a friend's supply. Denies the use of other substances with a history limited to occasional alcohol consumption. 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 - Housing: Stable - Exercise: Regular gym attendance, [facility] 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 - Substance Use: Occasional alcohol cons umption; previous tobacco use in high school - Nutrition: Enjoys pizza and beer once or twice a week [facility] Medical History (Updated 04/24/25 @ 16:24 by Anotnio Osborn MD) Erectile dysfunction CLL (chronic lymphocytic leukemia) Establishing care with new doctor, encounter for Gout Hyperlipidemia Hx of gout Surgical History History of meniscectomy of left knee H/O colonoscopy Social History Housing: House Patient Tobacco Use Status: Former Tobacco user Years Smoked: 2 years in high school e-Cigarette/Vaping Use: Never Used service: No Current occupational status: employed 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 1. Little interest or pleasure in doing things: not at all 2. Feeling down, depressed, or hopeless: not at all 3. Trouble falling or staying asleep, or sleeping too much: not at all 4. Feeling tired or having little energy: not at all 5. Poor appetite or overeating: not at all 6. Feeling bad about yourself - or that you are a failure or have let yourself or your family down: not at all 7. Trouble concentrating on things, such as reading the newspaper or watching television: not at all 8. Moving or speaking so slowly that other people could have noticed. Or the opposite - being so fidgety or restless that you have been moving around a lot more than usual: not at all 9. Thoughts that you would be better off or of hurting yourself in some way: not at all Total score: 0 Depression Screening Interpretation: Negative Depression Screening Done: Yes 31480 - PHQ-9 Billing: Yes Source: Developed by Drs. Manav Mosher, Jennifer Reyes, Renan Ames and colleagues, with an educational lindsey from [employer]. Thrive Questionnaire Date Thrive assessed: 04/24/25 I am a: Patient What is your living situation today?: I have a steady place to live Within the past 12 months, did the food you bought not last and you didn't have the money to get more?: Never true Within the past 12 months, did you worry whether your food would run out before you got money to buy more?: Never true Do you have trouble paying for medicines?: No Do you have trouble getting transportation to medical appointments?: No Do you have trouble paying your heating and electricity bill?: No Do you have trouble taking care of your child, family member or friend?: No Do you have trouble with day-to-day activities such as bathing, preparing meals, shopping, managing finances, etc.?: No Are you currently unemployed and looking for a job?: No Are you interested in more education?: No THRIVE Score: 0 AUDIT C Alcohol Use Questionnaire (AUDIT-C) 1. How often do you have a drink containing alcohol?: 2-3 times a week 2. How many drinks containing alcohol do you have on a typical day when you are drinking?: 1 or 2 Total Score: 3 Score Reviewed/Action Taken: Yes ERICA-7 AMB Questionnaire ERICA-7 Date ERICA - 7 assessed: 04/24/25 Feeling nervous, anxious, or on edge: 0 = Not at all Not being able to stop or control worryin = Not at all Worrying too much about different things: 0 = Not at all Trouble relaxin = Not at all Being so restless that it is hard to sit still: 0 = Not at all Becoming easily annoyed or irritable: 0 = Not at all Feeling afraid as if something awful might happen: 0 = Not at all Total ERICA-7 score (0-4 normal; 5-9 mild; 10-14 moderate; 15-21 severe): 0 Source: Developed by Drs. Manav Mosher, Jennifer Reyes, Renan Ames and colleagues, with an educational lindsey from [employer]. ERICA-7 Assessment Billing ERICA-7 Assessment Tool: ERCIA-7 Assessment 43230 Review of Systems Const Details: - Musculoskeletal: Reports tightness in knee tendons - Cardiovascular: Denies chest pain or palpitations - Gastrointestinal: Reports occasional belly button discomfort - Genitourinary: Denies dysuria - Neurological: Denies headaches or dizziness - Psychological: Denies depression or anxiety symptoms - Dermatological: Reports hives with doxycycline exposure All systems reviewed & are unremarkable except as reviewed in HPI and above Physical exam (Primary Care) Vital Signs: Last Vital Signs Temp 97.9 F 04/24/25 16:05 Pulse 102 H 04/24/25 16:05 Resp 18 04/24/25 16:05 BP 150/84 H 04/24/25 16:05 Pulse Ox 97 04/24/25 16:05 Oxygen Delivery Method Room Air 04/24/25 16:05 BMI result Body Mass Index 30.7 Tobacco/Smoking Status: Tobacco use Status Tobacco use date assessed 04/24/25 04/24/25 15:56 Patient Tobacco Use Status Former Tobacco user 04/24/25 15:56 e-Cigarette/Vaping Use Never Used 04/24/25 16:08 PHQ-9: PHQ-9 Score PHQ-9: Total score 0 04/24/25 16:17 Depression Screening Interpretation: Negative Thrive Assessment: Date of Thrive Assessment Date Thrive assessed 04/24/25 04/24/25 16:17 Const Other: General: +Alert and oriented, Well nourished, No acute distress. Eye: Pupils are equal, round and reactive to light, Intact accommodation, Extraocular movements are intact, Normal conjunctiva, Vision unchanged. HENT: Normocephalic, Atraumatic, Tympanic membranes are clear, Normal hearing, Oral mucosa is moist, No pharyngeal erythema, Ear canals patent. Respiratory: Lungs CTA bilaterally, No wheeze, Respirations are non-labored. Cardiovascular: Regular rate, Regular rhythm, S1 auscultated, S2 auscultated, No murmur, Good pulses equal in all extremities, Normal peripheral perfusion, No edema. Gastrointestinal: Soft, Non-tender, Non-distended, Normal bowel sounds, No o rganomegaly. Musculoskeletal: Normal range of motion, Normal strength, No tenderness, No swelling, No deformity, Normal gait. Integumentary: Warm, Dry, [place], Intact. Neurologic: Alert, Oriented, Normal sensory, Normal motor function, No focal defects, Cranial Nerves II-XII are grossly intact, Normal deep tendon reflexes. Psychiatric: Cooperative, Appropriate mood & affect, Normal judgment. 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, unspecified cause, unspecified site M1A.9XX0 Gout site: unspecified site Gout etiology: unspecified cause Chronicity: chronic Presence of tophus: without tophus CLL (chronic lymphocytic leukemia) C91.10 Erectile dysfunction, unspecified erectile dysfunction type N52.9 Erectile dysfunction type: unspecified Additional Codes ERICA-7 Assessment Billing - ERICA-7 Assessment Tool: ERICA-7 Assessment 47544 ([id number]) PHQ-9 - 67255 - PHQ-9 Billing: Yes ([id number]) Assessment & Plan Assessment & Plan (1) Hyperlipidemia: Comment: - Prior panel suggestive of elevated TGs and LDL - Repeat cholesterol panel is ordered to review current status. Code(s): E78.5 - Hyperlipidemia, unspecified Category: Medical Qualifiers: Hyperlipidemia type: other hyperlipidemia Qualified Code(s): E78.49 - Other hyperlipidemia (2) White coat syndrome with diagnosis of hypertension: Code(s): I10 - Essential (primary) hypertension Plan: - Continue monitoring blood pressure at home with a digital cuff. - Encourage patient to track pressures at random times. (3) Gout: Comment: - Continue allopurinol 300 mg. - Monitor for any acute episodes or pain. Code(s): M10.9 - Gout, unspecified Category: Medical Qualifiers: Gout site: unspecified site Gout etiology: unspecified cause Chronicity: chronic Presence of tophus: without tophus Qualified Code(s): M1A.9XX0 - Chronic gout, unspecified, without tophus (tophi) (4) CLL (chronic lymphocytic leukemia): Comment: - Continue current monitoring with Dr. Espitia. Code(s): C91.10 - Chronic lymphocytic leukemia of B-cell type not having achieved remission Category: Medical (5) Erectile dysfunction: Comment: - Prescription for Viagra initiated. Discussed safe use and dosage limitation. Code(s): N52.9 - Male erectile dysfunction, unspecified Category: Medical Qualifiers: Erectile dysfunction type: unspecified Qualified Code(s): N52.9 - Male erectile dysfunction, unspecified Plan: Health maintenance: - Blood pressure monitoring discussed. - Repeat lipid panel scheduled. - Diabetes screening recommended. - Counseling on lifestyle modifications for heart health. - Up-to-date on colonoscopy; next due in 5 years. - Skin examinations for spider bite history. Patient was informed and verbally consented to the use of an ambient scribe for clinic note documentation during this visit. Plan I discussed with the patient the management and follow-up of his chronic conditions, including gout, hyperlipidemia, and hypertension. We addressed his concern about potential increase in white coat hypertension and stressed the importance of home blood pressure monitoring. I advised on lifestyle changes, specifically in diet and exercise, to help manage his elevated lipids. We ordered additional blood work to assess his current health status and plan further interventions if required. I instructed the patient to monitor any changes in his knee ache and belly button tenderness. We also discussed safe use of sildenafil for erectile dysfunction, emphasizing the importance of adhering to dosage guidelines. The patient was receptive to the care plans and was sche duled for follow-up in six months. Orders: Orders TSH reflex Free T4 Today Z76.89 - Persons encountering health services in other specified circumstances Hemoglobin A1c Today Z76.89 - Persons encountering health services in other specified circumstances Lipid Panel Today Z76.89 - Persons encountering health services in other specified circumstances Medications: New sildenafil (Viagra) administer 30 minutes to 4 hours before activity 50 mg PO DAILY PRN 7 tabs 0RF sexual activity Patient Instructions: - Buy a blood pressure cuff and keep track of your blood pressure at home. - Follow-up on lab tests for cholesterol and blood sugar levels. - Continue taking allopurinol and vitamins as recommended. - If you experience any unusual symptoms in your abdomen or knee, seek medical care. - Follow the guidelines on safe Viagra use; no more than one pill in 24 hours. - Limit alcohol intake to promote better health maintenance. - Contact the office if you have any questions or if your symptoms worsen.
[2025-04-24 16:05] VITALS: BP 150/84; PULSE 102; RESP 18; TEMP 36.6; O2SAT 97; BMI 30.7
--- OUTSIDE RECORDS SUMMARY | 2025-04-24 19:50 | XMS_ITS | Patient Health Record ---
Author Organization [facility] Address [address] [place] [address] Care Team Providers Care Movement Therapist Name Role Phone Luis (RETIRED) Lennox MABRY Primary Care Provide Paulino Ulloa Jr Unavailable [phone] Reason For Referral No Information Medications Medication [...] Problem Status W/U Status Risk Notes Problem [id number] Colon cancer screening (Z12.11) Active confirmed Problem [id number] Encounter for other preprocedural examination (Z01.818) Active confirmed Problem [id number] Long-term curren t use of high risk medication other than anticoagulant (Z79.899) Active confirmed Plan Of Treatment Future Test Test Name Order Date COLONOSCOPY 12/16/2020 Insurance Providers Payer Name Payer Address Payer Phone Subscriber Number Group Number Insured Name Patient Relationship to Insured Coverage Start Date Coverage End Date [facility] [address] [place] [address] [phone] [id number] KERRI LANDAVERDE Self - patient is the insured Medical (General) History Medical History History ICD Code gout Surgical History Surgery Date(Month/Year) Jewels [place] Left
--- OUTSIDE RECORDS SUMMARY | 2025-04-24 19:50 | XMS_ITS | Patient Health Record ---
Author Organization Manav Espitia III, MD Address [address] [place] [address] Care Team Providers Care Development Advisor Name Role Phone Lennox Smith MD Primary Care Provider UnavailDr. Manav Guerrero III Unavailable Allergies Allergen (clinical drug ingredient) Drug/Non Drug Allergy documented on EMR Reaction Allergy Type Onset Date Status doxycycline Doxycycline hives Drug Allergy Act [place] Results Component Value Reference Range Notes Complete Blood Count Auto Di ff Reviewed date:08/10/2024 09:01:01 PM Interpretation: Performing Lab:[facility], [address] [place] [phone] Notes/Report: White Blood Count 16.6 4.8-10.8 X10*3/uL [...] Panel Reviewed date:08/10/2024 09:01:01 PM Interpretation: Performing Lab:[address] [phone] Notes/Report: Sodium 141 135-145 mmol/L Potassium 4.6 [...] Acid Reviewed date:08/10/2024 09:01:01 PM Interpretation: Performing Lab:[address] [phone] Notes/Report: Uric Acid 7.7 3.4-7.0 mg/dL SLIDE REVIEW Reviewed date:08/10/2024 09:01:01 PM Interpretation: Performing Lab:[facility], [address] [place] [phone] Notes/Report: SLIDE REVIEW VERIFIED Complete Blood Count Auto Di ff Reviewed date:03/17/2025 04:05:38 PM Interpretation: Performing Lab:[facility], [address] [place] [phone] Notes/Report: White Blood Count 16.1 4.8-10.8 X10*3/uL Red Blood Count 4.75 4.60-5.80 X10*6/uL Hemoglobin 15.4 14.0-18.0 g/dl Hematocrit 43.7 42.0-52.0 % Mean Corpuscular Volume 92.0 80.0-98.0 fL Mean Corpuscular Hemoglobin 32.4 27.0-33.0 pg Mean Corpuscular HGB Conc 35.2 31.0-36.0 g/dl Red Cell Distribution Width 13.1 11.0-16.0 % Platelet Count 161 160-400 X10*3/uL Mean Platelet Volume 11.7 9.4-12.4 fL Neutrophils Percent Auto 21.8 45-73 % Imm Gran Pct Auto 0.2 0.0-0.4 % Lymphocytes Percent Auto 74.8 20-40 % Monocytes Percent Auto 1.6 2-11 % Eosinophils Percent Auto 1.2 0-4 % Basophils Percent Auto 0.4 0-2 % NRBC Pct Auto 0.1 0.0-0.2 /100WBC Neutrophils Absolute Auto 3.5 2.0-8.3 x10*3/u L Imm Gran Abs Auto 0.04 0.00-0.03 X10*3/uL Lymphocytes Absolute Auto 12.0 1.2-4.9 X10*3/u L Monocytes Absolute Auto 0.3 0.1-1.2 X10*3/uL Eosinophils Absolute Auto 0.2 0.0-0.4 X10*3/u L Basophils Absolute Auto 0.1 0.0-0.2 X10*3/uL NRBC Abs Auto 0.020 0.0-0.012 X10*3/uL White Blood Count 16.1 4.8-10.8 X10*3/uL Red Blood Count 4.75 4.60-5.80 X10*6/uL Hemoglobin 15.4 14.0-18.0 g/dl Hematocrit 43.7 42.0-52.0 % Mean Corpuscular Volume 92.0 80.0-98.0 fL Mean Corpuscular Hemoglobin 32.4 27.0-33.0 pg Mean Corpuscular HGB Conc 35.2 31.0-36.0 g/dl Red Cell Distribution Width 13.1 11.0-16.0 % Platelet Count 161 160-400 X10*3/uL Mean Platelet Volume 11.7 9.4-12.4 fL Neutrophils Percent Auto 21.8 45-73 % Imm Gran Pct Auto 0.2 0.0-0.4 % Lymphocytes Percent Auto 74.8 20-40 % Monocytes Percent Auto 1.6 2-11 % Eosinophils Percent Auto 1.2 0-4 % Basophils Percent Auto 0.4 0-2 % NRBC Pct Auto 0.1 0.0-0.2 /100WBC Neutrophils Absolute Auto 3.5 2.0-8.3 x10*3/u L Imm Gran Abs Auto 0.04 0.00-0.03 X10*3/uL Lymphocytes Absolute Auto 12.0 1.2-4.9 X10*3/u L Monocytes Absolute Auto 0.3 0.1-1.2 X10*3/uL Eosinophils Absolute Auto 0.2 0.0-0.4 X10*3/u L Basophils Absolute Auto 0.1 0.0-0.2 X10*3/uL NRBC Abs Auto 0.020 0.0-0.012 X10*3/uL CORRECTED REPORT CORRECTED REPORT Erythrocyte Sedimentation Ra te Reviewed date:03/17/2025 04:05:38 PM Interpretation: Performing Lab:[facility], [address] [place] [phone] Notes/Report: Erythrocyte Sedimentation Rate 5 0-15 MM/HR Patients with polycythemia and many hemoglobin abnormalities may have depressed sed rates whereas patients with anemia may have elevated sed rates. Comprehensive Met. Panel Reviewed date:03/17/2025 04:05:38 PM Interpretation: Performing Lab:[address] [phone] Notes/Report: Sodium 143 135-145 mmol/L Potassium 4.0 3.3-5.1 mmol/L Chloride 107 96-108 mmol/L Carbon Dioxide 27 22-29 mmol/L Anion Gap 13 12-20 Blood Urea Nitrogen 16 9-16 mg/dL Creatinine 0.88 0.5-1.4 mg/dL Estimated Glomerular Filt Rate > 60 Chronic Kidney Disease: Estimated GFR < 60 mL/min/1.73m2 Severe Kidney Disease: Estimated GFR < 15 mL/min/1.73m2 Glucose Random 80 60-115 mg/dL Calcium 9.1 8.4-10.2 mg/dL Bilirubin Total 0.6 0.0-1.0 mg/dL Aspartate Amino Transferase 22 5-37 U/L Alanine Aminotransferase 24 0-40 U/L Total Protein 7.0 6.5-8.0 g/dL Albumin Level 4.6 3.5-5.0 g/dL Alkaline Phosphatase 76 39-117 U/L Uric Acid Reviewed date:03/17/2025 04:05:38 PM Interpretation: Performing Lab:[address] [phone] Notes/Report: Uric Acid 6.3 3.4-7.0 mg/dL Lactate Dehydrogenase Reviewed date:03/17/2025 04:05:38 PM Interpretation: Performing Lab:[address] [phone] Notes/Report: Lactate Dehydrogenase 168 118-273 U/L SLIDE REVIEW Reviewed date:03/17/2025 04:05:38 PM Interpretation: Performing Lab:[address] [phone] Notes/Report: SLIDE REVIEW VERIFIED Reason For Referral [...] Problem Status W/U Status Risk Notes Problem 7537614 Former smoker (Z87.891) Active confirmed We made a plan to prevent relapse in times of illness or stress. Problem 439797740 Tubular adenoma (D36.9) Active confirmed He is scheduled to have colonoscopies every 5 years. He has no gastrointestinal symptoms at the current time. Problem 634440620 Obesity (BMI 30-39.9) (E66.9) Active confirmed We have discuss ed his diet and nutrition today. We reviewed his weight loss strategy. We made a plan to lose weight at a rate of one half of a pound per week through a diet restricted in fat calories and sodium combined with regular physical activity. Problem 96256779 Chronic lymphocytic leukemia (C91.10) Active confirmed He remains stab le at an early stage. No treatment is needed. Surveillance will continue. He is asymptomatic.. His uric acid has improved. His white blood cell count is slightly lower. No treatment is necessary at this time. Problem 022199449 Umbilical hernia without obstruction and without gangrene (K42.9) Active confirmed The hernia is easily reducible and asymptomatic. We discussed the appropriate times for which to have attention rendered. Problem 246454665256901 Idiopathic chronic gout without tophus, unspecified site (M1A.00X0) Active confirmed He says he has not had gout recently. His uric acid level was 7.7.We discussed the rationale for treating him. I have referred him back to primary care or treatment of his hyperuricemia. He did not wish to begin any a new therapy today Vital Signs Heart Rate 78 /min 03/19/2025 Temperature 97.3 degrees Fahrenheit 03/19/2025 Blood pressure diastolic 80 mm Hg 08/14/2024 Height 70 in 03/19/2025 Blood pressure systolic 140 mm Hg 08/14/2024 Weight 215 lbs 03/19/2025 BMI 30.85 kg/m2 03/19/2025 Encounters Encounter Location Date Provider Diagnosis Manav Espitia III, MD [address] [place] [address] [address] [place] [phone] 08/14/2024 Manav Espitia Chronic lymphocytic leukemia C91.10 ; Obesity (BMI 30-39.9) E66.9 ; Lymphocytosis D72.820 ; Idiopathic chronic gout without tophus, unspecified site M1A.00X0 and Former smoker Z87.891 Manav Espitia III, MD [address] [place] [address] [address] [place] [phone] 03/19/2025 Manav Omkar Chronic lymphocytic leukemia C91.10 ; Obesity (BMI [...] needed. Surveillance will continue. He is asymptomatic. 03/19/2025 Obesity (BMI 30-39.9) (ICD-10 - E66.9) We have discussed his diet and nutrition today. We reviewed his weight loss strategy. We made a plan to lose weight at a rate of one half of a pound per week through a diet restricted in fat calories and sodium combined with regular physical activity. 03/19/2025 Chronic lymphocytic leukemia (ICD-10 - C91.10) He remains stable at an early stage. No treatment is needed. Surveillance will continue. He is asymptomatic.. His uric acid has improved. His white blood cell count is slightly lower. No treatment is necessary at this time. 08/14/2024 Lymphocytosis (ICD-10 - D72.820) Lymphocytosis is stable. He is asymptomatic. There is no peripheral adenopathy or splenomegaly. Observation was continued. 03/19/2025 Former smoker (ICD-10 - Z87.891) We made a plan to prevent relapse in times of illness or stress. 08/14/2024 Idiopathic chronic gout without tophus, unspecified site (ICD-10 - M1A.00X0) He says he has not had gout recently. His uric acid level was 7.7.We discussed the rationale for treating him. I have referred him back to primary care or treatment of his hyperuricemia. He did not wish to begin any a new therapy today 03/19/2025 Idiopathic chronic gout without tophus, unspecified [...] in times of illness or stress. 03/19/2025 Umbilical hernia without obstruction and without gangrene (ICD-10 - K42.9) The hernia is easily reducible and asymptomatic. We discussed the appropriate times for which to have attention rendered. Plan Of Treatment Pending Test Test Name Order Date PROFILE, FASTING (COMPREHENSIVE METABOLI C) 03/31/2023 PROFILE, RANDOM (COMPREHENSIVE METABOLIC ) 08/16/2022 PROFILE, RANDOM (COMPREHENSIVE METABOLIC ) 08/25/2023 PROFILE, RANDOM (COMPREHENSIVE METABOLIC ) 03/19/2025 PROFILE, RANDOM (COMPREHENSIVE METABOLIC ) 08/14/2024 PROFILE, RANDOM (COMPREHENSIVE METABOLIC ) 05/17/2022 PROFILE, RANDOM (COMPREHENSIVE METABOLIC ) 03/06/2024 URIC ACID 03/06/2024 LIPID PANEL 03/31/2023 LDH 05/03/2022 LDH 08/14/2024 CBC w DIFF 03/31/2023 CBC w DIFF 03/06/2024 CBC w DIFF 08/16/2022 CBC w DIFF 03/19/2025 CBC w DIFF 05/17/2022 SED RATE (ESR) 08/14/2024 IGVH MUTATION 05/03/2022 IMMUNOFIXATION PANEL, SERUM (IEP) 2021 LEUKEMIA & LYMPHOMA EVAL (LLE) BLOOD 10/2021 BETA-2 MICROGLOBULIN, SERUM 08/16/2022 BETA-2 MICROGLOBULIN, SERUM 05/17/2022 FISH P53, DELETION 17p13.1 05/03/2022 CBC WITH AUTO DIFF 08/25/2023 CBC WITH AUTO DIFF 08/14/2024 Uric Acid 08/14/2024 Uric Acid 03/19/2025 Beta-2 Microglobulin, Serum 05/03/2022 Beta-2 Microglobulin, Serum 08/25/2023 FISH B Cell CLL 05/03/2022 Next Appt Details Provider Name:Manav Espitia , 09/19/2025 09:30:00 AM, [address] [place] [address] [address], [place], [address], Insurance Providers Payer Name Payer Address Payer Phone Subscriber Number Group Number Insured Name Patient Relationship to Insured Coverage Start Date Coverage End Date MEDICARE NGS [address] [place] [phone] [id number] Darnell Santiago Self - patient is the insured [address] [place] [phone] [id number] Darnell Santiago Self - patient is the insured Medical (General) History Medical History History ICD Code gout with hyperuricemia doxycycline allergy varicose veins umbilical hernia Lymphocytosis Osteoarthritis Tubular adenomatous Obesity Varicose veins Surgical History Surgery Date(Month/Year) Colonoscopy, tubular adenoma , Dr. Manav Wilks, [facility] 12/2020 Left knee meniscus surgery 2006
== END 2025-04-24 16:24 | disposition home or self-care (01) ==
LOC: HO.HMCHD 15:56
PROVIDERS: PCP Student in an Organized Health Care Education/Training Program; Visit Provider Student in an Organized Health Care Education/Training Program
DX: E78.49 Other hyperlipidemia (principal); I10 Essential (primary) hypertension; M1A.9XX0 Chronic gout, unspecified, without tophus (tophi); C91.10 Chronic lymphocytic leukemia of B-cell type not having achieved remission; N52.9 Male erectile dysfunction, unspecified

== ENCOUNTER 2025-05-21 08:58 | Outpatient (AMB) | payer MEDICARE, OTHER, SELFPAY ==
--- OUTSIDE RECORDS SUMMARY | 2024-02-23 13:15 | XMS_ITS ---
Author Organization Manav Espitia III, MD Address [address] [place] [address] Care Team Providers Care Die Maker Bench Stamping Name Role Phone Lennox Smith MD Primary Care Provider Unavaila Dr. Manav Cm III Unavailable REASON FOR VISIT follow up Social History Sex Assigned At : Social History Observation Description Sex Assigned At Male Encounters Encounter Location Date Provider Diagnosis Manav Espitia III, MD [address] [place] [address] [place] [address] 02/23/2024 Manav Espitia Plan Of Treatment Next Appt Details Provider Name:Manav Espitia , 09/19/2025 09:30:00 AM, [address] [place] [address] [place], [address], Progress Notes * STACEYDALYDarnell Hyatt CoronaDOB:1955 (69 yo M)Acc No.[id number]:02/23/2024 Progress Notes Patient: Darnell SALGADO Provider: Roseline Espitia MD :1955 A ge:68 Y S ex:Male Date:02/23/2024 Address:[id number] Pcp:Lennox Smith MD Subjective: * Chief Complaints: * 1 . Follow up. * Medical History: Objective: * Vitals: Assessment: Plan: * Treatment: * Images: * The named appointment provid er may or may not be the originator of this progress note, and it is not deemed complete until electronically signed by the appointment provider. Sign off status: Pending * Provider: Roseline Espitia MD Date: 0 02/23/2024 Generated for Ludmila espinoza/Cristobal/Harry on: 1 09:58 AM EDT
--- OUTSIDE RECORDS SUMMARY | 2024-03-06 06:30 | XMS_ITS ---
Author Organization Manav Espitia III, MD Address [address] [place] [address] Care Team Providers Care Ring Rolling Machine Operator Name Role Phone Lennox Smith MD Primary Care Provider Unavaila Dr. Manav Cm III Unavailable Allergies Allergen (clinical drug ingredient) Drug/Non Drug Allergy documented on EMR Reaction Allergy Type Onset Date Status doxycycline Doxycycline hives Drug Allergy Act [place] REASON FOR VISIT Chronic lymphocytic lymphoma, Gout, Obesity, Umbilical hernia Medications Medication SIG (Take, Route, Fr equency, Duration) Notes Start Date End Date Status Allopurinol 300 MG TAKE 1 TABLET BY BOBBY TH EVERY DAY Oral Active Social History Tobacco Use: Social History Observation Description Date Details (start date - stop date) Former Smoker NA - NA Sex Assigned At : Social History Observation Description Sex Assigned At Male Tobacco Use/Smoking Question Answer Notes Patient is a former smoker How long has it been since you last smoked? > 10 years Additional Findings: Tobacco Non-User Ex-cigaret te smoker Vital Signs Temperature 98.4 degrees Fahrenheit 03/06/20 24 Blood pressure systolic 143 mm Hg 03/06/20 24 Blood pressure diastolic 84 mm Hg 024 Heart Rate 75 /min 03/06/2024 Height 70 in 03/06/2024 Weight 213 lbs 03/06/2024 BMI 30.56 kg/m2 03/06/2024 Encounters Encounter Location Date Provider Diagnosis Manav Espitia III, MD [address] [place] [address] [place] [address] 03/06/2024 Manav Espitia Chronic lymphocytic leukemia C91.10 ; Lymphocytosis D72.820 ; Idiopathic chronic gout without tophus, unspecified site M1A.00X0 ; Obesity (BMI 30-39.9) E66.9 ; Umbilical hernia without obstruction and without gangrene K42.9 and Former smoker Z87.891 Assessments Encounter Date Diagnosis (ICD Code) Assessment Notes Treat ment Notes Treatment Clinical Notes 03/06/2024 Chronic lymphocytic leukemia (ICD-10 - C91.10) He remains stable at an early stage. No treatment is needed. Surveillance will continue. He is asymptomatic. 03/06/2024 Lymphocytosis (ICD-10 - D72.820) The lymphocyte count is slightly higher. Was no indication for treatment at this time.. 03/06/2024 Idiopathic chronic gout without tophus, unspecified site (ICD-10 - M1A.00X0) He denies any recent episodes of gout. A uric acid level was requested in the next blood test. 03/06/2024 Obesity (BMI 30-39.9) (ICD-10 - E66.9) His body mass index is 30. We discussed diet and nutrition today. We made a plan to lose weight at a rate of 1/2 of a pound per week. 03/06/2024 Umbilical hernia without obstruction and without gangrene (ICD-10 - K42.9) The hernia is easily reducible and asymptomatic. We discussed the appropriate times for which to have attention rendered. 03/06/2024 Former smoker (ICD-10 - Z87.891) We made a plan to prevent relapse in times of illness or stress. Plan Of Treatment Medication Medication Name Sig Start Date Stop Date Notes Allopurinol 300 MG TAKE 1 TABLET BY MOUTH EVERY DAY Oral Pending Test Test Name Order Date PROFILE, RANDOM (COMPREHENSIVE METABOLIC ) 03/06/2024 URIC ACID 03/06/2024 CBC w DIFF 03/06/2024 Next Appt Details Follow Up: 4 Months, Reason: ov review labs Provider Name:Manav Espitia , 09/19/2025 09:30:00 AM, [address] [place] [address] [address], [place], [address], Progress Notes * Darnell SANTIAGO:1955 (68 yo M)Acc No.[id number]:03/06/2024 Progress Notes Patient: Darnell Meyers Provider: Roseline Espitia MD :1955 A ge:68 Y S ex:Male Date:03/06/2024 Address:[facility] [place], [id number] Pcp:Lennox Smith MD Subjective: * Chief Complaints: * C hronic lymphocytic lymphomaGoutObesityUmbilical hernia * HPI: C OVID-19 Screening: He returns for ongoing follow-up of his CLL. He has no symptoms. He denies any abdominal pain fevers or chills or weight loss. On his examination today there was no adenopathy or splenomegaly. His blood work was unremarkable. Splenic blood cell count was slightly higher at 18,000. He is asymptomatic and will be observed. Questions H ave you experienced fever, chills, cough, sore throat, shortness of breath, difficulty breathing, muscle aches, loss of taste or smell? N o H ave you been exposed to the virus within the last 10 days? N o H ave you travelled internationally in the last 10 days? N o H ave you been exposed to COVID-19 in the past? Y es * ROS: G eneral/Constitutional: pain o nly normal aches and pains. C hills d enies.?Fatigue a dmits. F ever d enies. E NT: Decreased hearing d enies. R espiratory: Cough d enies. C ardiovascular: Chest pain with exertion d enies. D yspnea on exertion?denies. S hortness of breath d enies. G astrointestinal: Constipation o ccasional. D ecreased appetite d enies. D iarrhea d enies. H eartburn d enies. N ausea d enies. R ectal bleeding d enies. V omiting d enies. H ematology: bruising d enies. p etechiae d enies. S wollen glands n one have been noted. G enitourinary: Frequent urination o nce a night. M usculoskeletal: Muscle aches d enies. P ainful joints d enies. S ciatica d enies. W eakness d enies. S kin: Itching d enies. R kevin d enies. S kin lesion(s)?denies. N eurologic: Difficulty speaking d enies. D izziness d enies.?Headache d enies. L ow back pain d enies. P sychiatric: Depressed mood d enies. * Medical History: * Surgical History: L eft knee meniscus surgery 2007Colonoscopy, tubular adenoma, Dr. Manav Wilks, [facility] 12/2020 * Hospitalization/Major Diagno stic Procedure: D enies Past Hospitalization * Family History: F ather: 56 yrs, cad, in sleep, diagnosed with CVD. M other: 80 yrs, old age. 1 daughter(s) - healthy. . His father at a young age of coronary artery disease. His mother of old age. There is no family history of gastrointestinal malignancy or lymphoproliferative disorders. He has 1 daughter who is healthy and well. * Social History: T obacco Use: T obacco Use/Smoking P atient is a f ormer smoker H ow long has it been since you last smoked??> 10 years A dditional Findings: Tobacco Non-User E x-cigarette smoker Landen kay was born in [facility] in [place], [place]. He is single now. His significant other recently leaving him with one stepdaughter, Aung, who is healthy and well. His daughter works in medical oncology at [employer]. 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 He does not smoke or drink. He is a former smoker. * Medications: T akingAllopurinol 300 MG Tablet TAKE 1 TABLET BY MOUTH EVERY DAY Oral Medication List reviewed and reconciled with the patientTaking Allopurinol 300 MG Tablet TAKE 1 TABLET BY MOUTH EVERY DAY Oral Medication List reviewed and reconciled with the patient * Allergies: D oxycycline: hivesno[Allergies Verified] Objective: * Vitals: H t: 70, Wt:213, BMI:30.56, BP:143/84, HR:75, Temp:98.4, Wt-k.62. * P ast Orders: Lab:SLIDE REVIEW * Order Date 03/01/2024 03/24/2023 SLIDE REVIEW VERIFIED VERIFIED * Lab:Complete Blood Count Aut o Diff * Order Date 03/01/2024 03/24/2023 11/18/2022 White Blood Count 18.9 H (Ref Range: 4.8-10.8 X10*3/uL) 14.9 H (Ref Range: 4.8-10.8 X10*3/uL) 14.8 H (Ref Range: 4.8-10.8 X10*3/uL) Red Blood Count 4.75 (Ref Range: 4.60-5.80 X10*6/uL) 4.74 (Ref Range: 4.60-5.80 X10*6/uL) 4.62 (Ref Range: 4.60-5.80 X10*6/uL) Hemoglobin 15.4 (Ref Range: 14.0-18.0 g/dl) 15.4 (Ref Range: 14.0-18.0 g/dl) 14.5 (Ref Range: 14.0-18.0 g/dl) Hematocrit 43.7 (Ref Range: 42.0-52.0 %) 43.9 (Ref Range: 42.0-52.0 %) 42.8 (Ref Range: 42.0-52.0 %) Mean Corpuscular Volume 92.0 (Ref Range: 80.0-98.0 fL) 92.6 (Ref Range: 80.0-98.0 fL) 92.6 (Ref Range: 80.0-98.0 fL) Mean Corpuscular Hemoglobin 32.4 (Ref Range: 27.0-33.0 pg) 32.5 (Ref Range: 27.0-33.0 pg) 31.4 (Ref Range: 27.0-33.0 pg) Mean Corpuscular HGB Conc 35.2 (Ref Range: 31.0-36.0 g/dl) 35.1 (Ref Range: 31.0-36.0 g/dl) 33.9 (Ref Range: 31.0-36.0 g/dl) Red Cell Distribution Width 13.1 (Ref Range: 11.0-16.0 %) 12.8 (Ref Range: 11.0-16.0 %) 13.2 (Ref Range: 11.0-16.0 %) Platelet Count 169 (Ref Range: 160-400 X10*3/uL) 157 L (Ref Range: 160-400 X10*3/uL) 148 L (Ref Range: 160-400 X10*3/uL) Mean Platelet Volume 11.5 (Ref Range: 9.4-12.4 fL) 11.7 (Ref Range: 9.4-12.4 fL) 11.8 (Ref Range: 9.4-12.4 fL) Neutrophils Percent Auto 15.4 L (Ref Range: 45-73 %) 26.2 L (Ref Range: 45-73 %) 23.6 L (Ref Range: 45-73 %) Imm Gran Pct Auto 0.2 (Ref Range: 0.0-0.4 %) 0.2 (Ref Range: 0.0-0.4 %) 0.3 (Ref Range: 0.0-0.4 %) Lymphocytes Percent Auto 80.0 H (Ref Range: 20-40 %) 69.2 H (Ref Range: 20-40 %) 71.1 H (Ref Range: 20-40 %) Monocytes Percent Auto 2.6 (Ref Range: 2-11 %) 2.8 (Ref Range: 2-11 %) 2.8 (Ref Range: 2-11 %) Eosinophils Percent Auto 1.5 (Ref Range: 0-4 %) 1.1 (Ref Range: 0-4 %) 1.9 (Ref Range: 0-4 %) Basophils Percent Auto 0.3 (Ref Range: 0-2 %) 0.5 (Ref Range: 0-2 %) 0.3 (Ref Range: 0-2 %) NRBC Pct Auto 0.0 (Ref Range: 0.0-0.2 /100WBC) 0.0 (Ref Range: 0.0-0.2 /100WBC) 0.0 (Ref Range: 0.0-0.2 /100WBC) Neutrophils Absolute Auto 2.9 (Ref Range: 2.0-8.3 x10*3/uL) 3.9 (Ref Range: 2.0-8.3 x10*3/uL) 3.5 (Ref Range: 2.0-8.3 x10*3/uL) Imm Gran Abs Auto 0.03 (Ref Range: 0.00-0.03 X10*3/uL) 0.03 (Ref Range: 0.00-0.03 X10*3/uL) 0.04 H (Ref Range: 0.00-0.03 X10*3/uL) Lymphocytes Absolute Auto 15.1 H (Ref Range: 1.2-4.9 X10*3/uL) 10.3 H (Ref Range: 1.2-4.9 X10*3/uL) 10.5 H (Ref Range: 1.2-4.9 X10*3/uL) Monocytes Absolute Auto 0.5 (Ref Range: 0.1-1.2 X10*3/uL) 0.4 (Ref Range: 0.1-1.2 X10*3/uL) 0.4 (Ref Range: 0.1-1.2 X10*3/uL) Eosinophils Absolute Auto 0.3 (Ref Range: 0.0-0.4 X10*3/uL) 0.2 (Ref Range: 0.0-0.4 X10*3/uL) 0.3 (Ref Range: 0.0-0.4 X10*3/uL) Basophils Absolute Auto 0.1 (Ref Range: 0.0-0.2 X10*3/uL) 0.1 (Ref Range: 0.0-0.2 X10*3/uL) 0.1 (Ref Range: 0.0-0.2 X10*3/uL) NRBC Abs Auto 0.000 (Ref Range: 0.0-0.012 X10*3/uL) 0.000 (Ref Range: 0.0-0.012 X10*3/uL) 0.000 (Ref Range: 0.0-0.012 X10*3/uL) * Lab:Comprehensive Met. Panel * Order Date 03/01/2024 03/24/2023 11/18/2022 Sodium 143 (Ref Range: 135-145 mmol/L) 141 (Ref Range: 135-145 mmol/L) 145 (Ref Range: 135-145 mmol/L) Bilirubin Total 0.6 (Ref Range: 0.0-1.0 mg/dL) 0.7 (Ref Range: 0.0-1.0 mg/dL) 0.8 (Ref Range: 0.0-1.0 mg/dL) Aspartate Amino Transferase 17 (Ref Range: 5-37 U/L) 23 (Ref Range: 5-37 U/L) 16 (Ref Range: 5-37 U/L) Alanine Aminotransferase 22 (Ref Range: 0-40 U/L) 26 (Ref Range: 0-40 U/L) 20 (Ref Range: 0-40 U/L) Total Protein 7.1 (Ref Range: 6.5-8.0 g/dL) 7.4 (Ref Range: 6.5-8.0 g/dL) 6.5 (Ref Range: 6.5-8.0 g/dL) Albumin Level 4.5 (Ref Range: 3.5-5.0 g/dL) 4.7 (Ref Range: 3.5-5.0 g/dL) 4.4 (Ref Range: 3.5-5.0 g/dL) Alkaline Phosphatase 67 (Ref Range: 39-117 U/L) 67 (Ref Range: 39-117 U/L) 71 (Ref Range: 39-117 U/L) Potassium 4.4 (Ref Range: 3.3-5.1 mmol/L) 4.2 (Ref Range: 3.3-5.1 mmol/L) 4.8 (Ref Range: 3.3-5.1 mmol/L) Chloride 108 (Ref Range: 96-108 mmol/L) 107 (Ref Range: 96-108 mmol/L) 108 (Ref Range: 96-108 mmol/L) Carbon Dioxide 28 (Ref Range: 22-29 mmol/L) 27 (Ref Range: 22-29 mmol/L) 27 (Ref Range: 22-29 mmol/L) Anion Gap 11 L (Ref Range: 12-20) 11 L (Ref Range: 12-20) 15 (Ref Range: 12-20) Blood Urea Nitrogen 15 (Ref Range: 9-16 mg/dL) 14 (Ref Range: 9-16 mg/dL) 16 (Ref Range: 9-16 mg/dL) Creatinine 0.96 (Ref Range: 0.5-1.4 mg/dL) 0.85 (Ref Range: 0.5-1.4 mg/dL) 0.91 (Ref Range: 0.5-1.4 mg/dL) Estimated Glomerular Filt Rate > 60 > 60 > 60 Glucose Random 103 (Ref Range: 60-115 mg/dL) 88 (Ref Range: 60-115 mg/dL) 99 (Ref Range: 60-115 mg/dL) Calcium 9.6 (Ref Range: 8.4-10.2 mg/dL) 9.7 (Ref Range: 8.4-10.2 mg/dL) 9.2 (Ref Range: 8.4-10.2 mg/dL) * Examination: G eneral Examination: GENERAL APPEARANCE: p leasant, well nourished, well developed, in no acute distress, calm and relaxed , obese , man. HEAD: a traumatic, normocephalic. EYES: e tanya, perrla, anicteric, conjugate. EARS: n ormal. NOSE: s eptum intact. ORAL CAVITY: n ormal, unremarkable, Walldyers ring is normal. NECK/THYROID: n o jugular venous distention, no carotid bruit, thyroid normal. LYMPH NODES: n o enlarged lymph nodes,spleen normal. SKIN: n o suspicious lesions, anicteric. HEART: n o clicks, gallops, murmurs, or rubs, regular rhythm, S1, S2 normal, no s3, or vascular bruits. LUNGS: c lear to auscultation . BREASTS: no masses palpable bilaterally. ABDOMEN: b owel sounds normal, no ascites, no organomegaly, no mass , centripital obesity, Reducible moderate umbilical hernia. RECTAL EXAM: n ot examined. MUSCULOSKELETAL: e xtremities unremarkable, no clubbing, cyanosis or edema. PERIPHERAL PULSES: n ormal. NEUROLOGIC: a lert and oriented, cranial nerves 2-12 grossly intact, deep tendon reflexes 2+ symmetrical, motor strength normal upper and lower extremities, sensory exam intact. PSYCH: a lert, oriented. Assessment: * Assessment: 1. C hronic lymphocytic leukemia - C91.10 (Primary), He remains stable at an early stage. No treatment is needed. Surveillance will continue. He is asymptomatic. 2 . L ymphocytosis - D72.820, The lymphocyte count is slightly higher. Was no indication for treatment at this time.. 3 .?Idiopathic chronic gout without tophus, unspecified site - M1A.00X0, He denies any recent episodes of gout. A uric acid level was requested in the next blood test. 4 . O besity (BMI 30-39.9) - E66.9, His body mass index is 30. We discussed diet and nutrition today. We made a plan to lose weight at a rate of 1/2 of a pound per week. 5 . U mbilical hernia without obstruction and without gangrene - K42.9, The hernia is easily reducible and asymptomatic. We discussed the appropriate times for which to have attention rendered. 6 . F ormer smoker - Z87.891, We made a plan to prevent relapse in times of illness or stress. Plan: * Treatment: 2. L ymphocytosis L AB: PROFILE, RANDOM (COMPREHENSIVE METABOLIC) L AB: URIC ACID L AB: CBC w DIFF 3. I diopathic chronic gout without tophus, unspecified site L AB: PROFILE, RANDOM (COMPREHENSIVE METABOLIC) L AB: URIC ACID L AB: CBC w DIFF * Procedure Codes: * Preventive Medicine: Counseling: C are goal follow-up plan: Counseling for abnormal BMI given Y es Above Normal BMI Follow-up D ietary management education, guidance, and counseling, Dietary needs education, Exercise promotion: strength training, Exercise promotion: stretching, Feeding regime, Giving encouragement to exercise, Lifestyle education regarding diet, Nutrition / feeding management, Nutrition therapy, Prescribed activity/exercise education, Prescribed diet education, Prescribed dietary intake, Special diet education, Weight monitoring , Intervention, Order not done: Medical or Other reason not done S moking/Tobacco Use Patient counseled on the dangers of tobacco use and urged to quit. 0 03/05/2024 * Follow Up: 4 Months (Reason: ov review labs) * Images: * Sign off status: Completed true * Provider: Roseline Espitia MD Date: 0 03/06/2024 Generated for Ludmila espinoza/Cristobal/Hoangitting on: 1 09:58 AM EDT History and Physical Notes * HPI (History of Present Illness) Category Sub-Category Detail Notes COVID-19 Screening Questions Have you had any new onset fever, chills, cough, congestion, sore throat, shortness of breath, muscle aches?: No Have you been exposed to the virus withi n the last 10 days?: No Have you travelled internationally in [facility] last 10 days?: No Have you been exposed to COVID-19 in the past?: Yes Examination Category Sub-Category Detail Notes General Examination GENERAL APPEARANCE: pleasant , well nourished, well developed, in no acute distress, calm and relaxed , obese , man HEAD: atraumatic, normocep halic EYES: eomi, perrla, anicte sandra, conjugate EARS: normal NOSE: septum intact NECK/THYROID: no jugular venous di stention, no carotid bruit, thyroid normal HEART: no clicks, gallops, murmurs, or rubs, regular rhythm, S1, S2 normal, no s3, or vascular bruits LUNGS: clear to auscultatio n ABDOMEN: bowel sounds normal, no ascites, no organomegaly, no mass , centripital obesity, Reducible moderate umbilical hernia NEUROLOGIC: alert and oriented, cranial nerves 2-12 grossly intact, deep tendon reflexes 2+ symmetrical, motor strength normal upper and lower extremities, sensory exam intact SKIN: no suspicious lesion s, anicteric PERIPHERAL PULSES: normal BREASTS: no masses palpable b ilaterally MUSCULOSKELETAL: extremities unremark able, no clubbing, cyanosis or edema LYMPH NODES: no enlarged lymph no andrew,spleen normal RECTAL EXAM: not examined PSYCH: alert, oriented ORAL CAVITY: normal, unremarkable , Walldyers ring is normal
--- OUTSIDE RECORDS SUMMARY | 2024-07-10 13:15 | XMS_ITS ---
Author Organization Manav Espitia III, MD Address [address] [place] [address] Care Team Providers Care Orthodontic Band Maker Name Role Phone Lennox Smith MD Primary Care Provider Unavaila Dr. Manav Cm III Unavailable Allergies Allergen (clinical drug ingredient) Drug/Non Drug Allergy documented on EMR Reaction Allergy Type Onset Date Status doxycycline Doxycycline hives Drug Allergy Act [place] REASON FOR VISIT follow up Medications Medication SIG (Take, Route, Fr equency, [...] Additional Findings: Tobacco Non-User Ex-cigaret te smoker Encounters Encounter Location Date Provider Diagnosis Manav Espitia III, MD [address] [place] [address] DR [place]AN [place] [address] 07/10/2024 Manav Espitia Chronic lymphocytic leukemia C91.10 Assessments Encounter Date Diagnosis (ICD Code) Assessment Notes Treatment Notes Treatment Clinical Notes 07/10/2024 Chronic lymphocytic leukemia (ICD-10 - C91.10) He remains stable at an early stage. No treatment is needed. Surveillance will continue. He is asymptomatic. Plan Of Treatment Medication Medication Name Sig Start Date Stop Date Notes Allopurinol 300 MG TAKE 1 TABLET BY MOUTH EVERY DAY Oral Next Appt Details Provider Name:Manav Douglasrne , 09/19/2025 09:30:00 AM, [address] [place] [address] [address], [facility] [place], [address], Progress Notes * Darnell SANTIAGODOB:1955 (69 yo M)Acc No.[id number]:07/10/2024 Progress Notes Patient: Darnell SALGADO Provider: Roseline Espitia MD :1955 A ge:68 Y S ex:Male Date:07/10/2024 Address:[address] [place] [address] [address] [place] [id number] Pcp:Lennox Smith MD Subjective: * Chief Complaints: * 1 . Follow up. * HPI: C OVID-19 Screening: Questions H ave you had any new onset fever, chills, cough, congestion, sore throat, shortness of breath, muscle aches? N o H ave you been exposed to the virus within the last 10 days? N o H ave you travelled internationally in the last 10 days? N o H ave you been exposed to COVID-19 in the past? N o * ROS: G eneral/Constitutional: pain o nly normal aches and pains. C hills d enies.?Fatigue a dmits. F ever d enies. E NT: Decreased hearing d enies. R espiratory: Cough d enies. C ardiovascular: Chest pain with exertion d enies. D yspnea on exertion?denies. S hortness of breath d enies. G astrointestinal: Constipation d enies. D ecreased appetite d enies.?Diarrhea d enies. H eartburn d enies. N ausea d enies. R ectal bleeding?denies. V omiting d enies. H ematology: bruising d enies. p etechiae d enies. S wollen glands n one have been noted. G enitourinary: Frequent urination d enies. M usculoskeletal: Muscle aches d enies. P ainful joints d enies. S ciatica d enies. W eakness d enies. S kin: Itching d enies. R kevin d enies. S kin lesion(s)?denies. N eurologic: Difficulty speaking d enies. D izziness d enies.?Headache d enies. L ow back pain d enies. P sychiatric: Depressed mood d enies. * Medical History: G out with hyperuricemia, Doxycycline allergy, Varicose veins, Umbilical hernia, Lymphocytosis, Osteoarthritis, Tubular adenomatous, Obesity, Varicose veins. * Surgical History: L eft knee meniscus surgery 2006, Colonoscopy, tubular adenoma, Dr. Manav Wilks, [facility] 12/2020. * Hospitalization/Major Diagno stic Procedure: D enies Past Hospitalization. * Family History: F ather: 56 yrs, [...] x-cigarette smoker Landen kay was born in [facility] in [place], [place]. He is single now. His significant other recently leaving him with one stepdaughter, Aung, who is healthy and well. His daughter works in medical oncology at [employer]. 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 He does not smoke or drink. He is a former smoker. * Medications: T aking Allopurinol 300 MG Tablet TAKE 1 TABLET BY MOUTH EVERY DAY Oral , Medication List reviewed and reconciled with the patient * Allergies: D oxycycline: hives. Objective: * Vitals: * Examination: G eneral Examination: GENERAL APPEARANCE: p leasant, well nourished, well developed, in no acute distress, calm and relaxed. HEAD: a traumatic, normocephalic. EYES: e tanya, perrla, anicteric, conjugate. EARS: n ormal. NOSE: s eptum intact. ORAL CAVITY: n ormal, unremarkable. NECK/THYROID: n o jugular venous distention, no [...] sounds normal, no ascites, no organomegaly, no mass. RECTAL EXAM: n ot examined. MUSCULOSKELETAL: e xtremities unremarkable, no clubbing, cyanosis or edema. PERIPHERAL PULSES: n ormal. NEUROLOGIC: a lert and oriented, cranial nerves 2-12 grossly intact, deep tendon reflexes 2+ symmetrical, motor strength normal upper and lower extremities, sensory exam intact. PSYCH: a lert, oriented. Assessment: * Assessment: 1. C hronic lymphocytic leukemia - C91.10 N otes :He remains stable at an early stage. No treatment is needed. Surveillance will continue. He is asymptomatic. Plan: * Treatment: * Images: * The named appointment provid er may or may not be the originator of this progress note, and it is not deemed complete until electronically signed by the appointment provider. Sign off status: Pending * Provider: Roseline Espitia MD Date: 09/10/2023 Generated for Ludmila espinoza/Cristobal/eTlylesmitting on: 09:58 AM EDT History and Physical Notes * HPI (History of Present Illness) Category Sub-Category Detail Notes COVID-19 Screening Questions Have you had any new onset fever, chills, cough, congestion, sore throat, shortness of breath, muscle aches?: No Have you been exposed to the virus withi n the last 10 days?: No Have you travelled internationally in last 10 days?: No Have you been exposed to COVID-19 in the past?: No Examination Category Sub-Category Detail Notes General Examination GENERAL APPEARANCE: pleasant , well nourished, well developed, in no acute distress, calm and relaxed HEAD: atraumatic, normocep halic EYES: eomi, perrla, anicte sandra, conjugate EARS: normal NOSE: septum intact NECK/THYROID: no jugular venous di stention, no carotid bruit, thyroid normal HEART: no clicks, gallops, murmurs, or rubs, regular rhythm, S1, S2 normal, no s3, or vascular bruits LUNGS: clear to auscultatio n ABDOMEN: bowel sounds normal, no ascites, no organomegaly, no mass NEUROLOGIC: alert and oriented, cranial nerves 2-12 [...]
--- OUTSIDE RECORDS SUMMARY | 2024-08-14 05:45 | XMS_ITS ---
Author Organization Manav Espitia III, MD Address [address] [address] Care Team Providers Care Fish Drier Name Role Phone Lennox Smith MD Primary Care Provider Unavaila Dr. Manav Cm III Unavailable Allergies Allergen (clinical drug ingredient) Drug/Non Drug Allergy documented on EMR Reaction Allergy Type Onset Date Status doxycycline Doxycycline hives Drug Allergy Act [place] REASON FOR VISIT CLL, gout, Obesity, Umbilical hernia Medications Medication SIG (Take, [...] Non-User Ex-cigaret te smoker Vital Signs Temperature 97.4 degrees Fahrenheit 08/14/19 25 Blood pressure systolic 140 mm Hg 08/14/19 25 Blood pressure diastolic 80 mm Hg 025 Heart Rate 80 /min 08/14/2024 Height 70 in 08/14/2024 Weight 217 lbs 08/14/2024 BMI 31.13 kg/m2 08/14/2024 Encounters Encounter Location Date Provider Diagnosis Manav Espitia III, MD [address] [place] [address] [place] [address] 08/14/2024 Manav Espitia Chronic lymphocytic leukemia C91.10 ; Obesity (BMI 30-39.9) E66.9 ; Lymphocytosis D72.820 ; Idiopathic chronic gout without tophus, unspecified site M1A.00X0 and Former smoker Z87.891 Assessments Encounter Date Diagnosis (ICD Code) Assessment Notes Treat ment Notes Treatment Clinical Notes 08/14/2024 Chronic lymphocytic leukemia (ICD-10 - C91.10) He remains stable at an early stage. No treatment is needed. Surveillance will continue. He is asymptomatic. 08/14/2024 Obesity (BMI 30-39.9) (ICD-10 - E66.9) We have discussed his diet and nutrition today. We reviewed his weight loss strategy. We made a plan to lose weight at a rate of one half of a pound per week through a diet restricted in fat calories and sodium combined with regular physical activity. 08/14/2024 Lymphocytosis (ICD-10 - D72.820) Lymphocytosis is stable. He is asymptomatic. There is no peripheral adenopathy or splenomegaly. Observation was continued. 08/14/2024 Idiopathic chronic gout without tophus, unspecified site (ICD-10 - M1A.00X0) He says he has not had gout recently. His uric acid level was 7.7.We discussed the rationale for treating him. I have referred him back to primary care or treatment of his hyperuricemia. He did not wish to begin any a new therapy today 08/14/2024 Former smoker (ICD-10 - Z87.891) We made a plan to prevent relapse in times of illness or stress. Plan Of Treatment Medication Medication Name Sig Start Date Stop Date Notes Allopurinol 300 MG TAKE 1 TABLET BY MOUTH EVERY DAY Oral Pending Test Test Name Order Date PROFILE, RANDOM (COMPREHENSIVE METABOLIC ) 08/14/2024 LDH 08/14/2024 SED RATE (ESR) 08/14/2024 CBC WITH AUTO DIFF 08/14/2024 Uric Acid 08/14/2024 Next Appt Details Follow Up: 6 Months, Reason: OV Provider Name:Manav Espitia , 09/19/2025 09:30:00 AM, [address] [place] [address] [address], [place], [address], Progress Notes * Darnell SANTIAGO:1955 (68 yo M)Acc No.[id number]:08/14/2024 Progress Notes Patient: Darnell SALGADO Provider: Roseline Espitia MD :1955 A ge:68 Y S ex:Male Date:08/14/2024 Address:[facility] [place], [id number] Pcp:Lennox Smith MD Subjective: * Chief Complaints: * C LLGoutObesityUmbilical hernia * HPI: C OVID-19 Screening: He returns to the office for a scheduled periodic evaluation of his chronic lymphocytic leukemia. Since his last visit he has been healthy and well. His large umbilical hernia remains asymptomatic. He has no new complaints. He has had no fevers or chills or bone pain. He denies any adenopathy. He has no dysphagia. His examination today was unremarkable except for the hernia. Observation was continued without treatment at this time. Questions H ave you had any new onset fever, chills, cough, congestion, sore throat, shortness of breath, muscle aches? N o * ROS: G eneral/Constitutional: pain [...] surgery 2007Colonoscopy, tubular adenoma, Dr. Manav Wilks, [facility] 12/2020 * Hospitalization/Major Diagno stic Procedure: [...] x-cigarette smoker Landen kay was born in [facility] in [place], [place]. He is single now. His significant other recently leaving him with one stepdaughter, Aung, who is healthy and well. His daughter works in medical oncology at [employer]. 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 He does not smoke or drink. He is a former smoker. * Medications: T akingAllopurinol 300 MG Tablet TAKE 1 TABLET BY MOUTH EVERY DAY Oral Medication List reviewed and reconciled with the patientTaking Allopurinol 300 MG Tablet TAKE 1 TABLET BY MOUTH EVERY DAY Oral Medication List reviewed and reconciled with the patient * Allergies: D oxycycline: hives Objective: * Vitals: H t: 70, Wt:217, BMI:31.13, BP:140/80, HR:80, Temp:97.4, Wt-k.43. * P ast Orders: Lab:SLIDE REVIEW * Collection Date 08/08/2024 03/01/2024 03/24/2023 Collection Time 03:13 PM 11:10 AM 02:38 PM Order Date 08/08/2024 03/01/2024 03/24/2023 SLIDE REVIEW VERIFIED VERIFIED VERIFIED ???Lab:Uric Acid (Order Date - 08/08/2024) (Collection Date & Time - 08/08/2024 03:13 PM)?ValueReference Range?Uric Acid7.7H3.4-7.0 - mg/dL * Lab:Comprehensive Met. Panel * Collection Date 08/08/2024 03/01/2024 03/24/2023 Collection Time 03:13 PM 11:10 AM 02:38 PM Order Date 08/08/2024 03/01/2024 03/24/2023 Sodium 141 (Ref Range: 135-145 mmol/L) 143 (Ref Range: 135-145 mmol/L) 141 (Ref Range: 135-145 mmol/L) Bilirubin Total 0.7 (Ref Range: 0.0-1.0 mg/dL) 0.6 (Ref Range: 0.0-1.0 mg/dL) 0.7 (Ref Range: 0.0-1.0 mg/dL) Aspartate Amino Transferase 23 (Ref Range: 5-37 U/L) 17 (Ref Range: 5-37 U/L) 23 (Ref Range: 5-37 U/L) Alanine Aminotransferase 31 (Ref Range: 0-40 U/L) 22 (Ref Range: 0-40 U/L) 26 (Ref Range: 0-40 U/L) Total Protein 7.1 (Ref Range: 6.5-8.0 g/dL) 7.1 (Ref Range: 6.5-8.0 g/dL) 7.4 (Ref Range: 6.5-8.0 g/dL) Albumin Level 4.5 (Ref Range: 3.5-5.0 g/dL) 4.5 (Ref Range: 3.5-5.0 g/dL) 4.7 (Ref Range: 3.5-5.0 g/dL) Alkaline Phosphatase 68 (Ref Range: 39-117 U/L) 67 (Ref Range: 39-117 U/L) 67 (Ref Range: 39-117 U/L) Potassium 4.6 (Ref Range: 3.3-5.1 mmol/L) 4.4 (Ref Range: 3.3-5.1 mmol/L) 4.2 (Ref Range: 3.3-5.1 mmol/L) Chloride 106 (Ref Range: 96-108 mmol/L) 108 (Ref Range: 96-108 mmol/L) 107 (Ref Range: 96-108 mmol/L) Carbon Dioxide 29 (Ref Range: 22-29 mmol/L) 28 (Ref Range: 22-29 mmol/L) 27 (Ref Range: 22-29 mmol/L) Anion Gap 11 L (Ref Range: 12-20) 11 L (Ref Range: 12-20) 11 L (Ref Range: 12-20) Blood Urea Nitrogen 18 H (Ref Range: 9-16 mg/dL) 15 (Ref Range: 9-16 mg/dL) 14 (Ref Range: 9-16 mg/dL) Creatinine 0.80 (Ref Range: 0.5-1.4 mg/dL) 0.96 (Ref Range: 0.5-1.4 mg/dL) 0.85 (Ref Range: 0.5-1.4 mg/dL) Estimated Glomerular Filt Rate > 60 > 60 > 60 Glucose Random 93 (Ref Range: 60-115 mg/dL) 103 (Ref Range: 60-115 mg/dL) 88 (Ref Range: 60-115 mg/dL) Calcium 9.3 (Ref Range: 8.4-10.2 mg/dL) 9.6 (Ref Range: 8.4-10.2 mg/dL) 9.7 (Ref Range: 8.4-10.2 mg/dL) * Lab:Complete Blood Count Aut o Diff * Collection Date 08/08/2024 03/01/2024 03/24/2023 Collection Time 03:13 PM 11:10 AM 02:38 PM Order Date 08/08/2024 03/01/2024 03/24/2023 White Blood Count 16.6 H (Ref Range: 4.8-10.8 X10*3/uL) 18.9 H (Ref Range: 4.8-10.8 X10*3/uL) 14.9 H (Ref Range: 4.8-10.8 X10*3/uL) Red Blood Count 4.96 (Ref Range: 4.60-5.80 X10*6/uL) 4.75 (Ref Range: 4.60-5.80 X10*6/uL) 4.74 (Ref Range: 4.60-5.80 X10*6/uL) Hemoglobin 15.7 (Ref Range: 14.0-18.0 g/dl) 15.4 (Ref Range: 14.0-18.0 g/dl) 15.4 (Ref Range: 14.0-18.0 g/dl) Hematocrit 46.5 (Ref Range: 42.0-52.0 %) 43.7 (Ref Range: 42.0-52.0 %) 43.9 (Ref Range: 42.0-52.0 %) Mean Corpuscular Volume 93.8 (Ref Range: 80.0-98.0 fL) 92.0 (Ref Range: 80.0-98.0 fL) 92.6 (Ref Range: 80.0-98.0 fL) Mean Corpuscular Hemoglobin 31.7 (Ref Range: 27.0-33.0 pg) 32.4 (Ref Range: 27.0-33.0 pg) 32.5 (Ref Range: 27.0-33.0 pg) Mean Corpuscular HGB Conc 33.8 (Ref Range: 31.0-36.0 g/dl) 35.2 (Ref Range: 31.0-36.0 g/dl) 35.1 (Ref Range: 31.0-36.0 g/dl) Red Cell Distribution Width 13.2 (Ref Range: 11.0-16.0 %) 13.1 (Ref Range: 11.0-16.0 %) 12.8 (Ref Range: 11.0-16.0 %) Platelet Count 166 (Ref Range: 160-400 X10*3/uL) 169 (Ref Range: 160-400 X10*3/uL) 157 L (Ref Range: 160-400 X10*3/uL) Mean Platelet Volume 10.9 (Ref Range: 9.4-12.4 fL) 11.5 (Ref Range: 9.4-12.4 fL) 11.7 (Ref Range: 9.4-12.4 fL) Neutrophils Percent Auto 22.5 L (Ref Range: 45-73 %) 15.4 L (Ref Range: 45-73 %) 26.2 L (Ref Range: 45-73 %) Imm Gran Pct Auto 0.2 (Ref Range: 0.0-0.4 %) 0.2 (Ref Range: 0.0-0.4 %) 0.2 (Ref Range: 0.0-0.4 %) Lymphocytes Percent Auto 73.5 H (Ref Range: 20-40 %) 80.0 H (Ref Range: 20-40 %) 69.2 H (Ref Range: 20-40 %) Monocytes Percent Auto 2.3 (Ref Range: 2-11 %) 2.6 (Ref Range: 2-11 %) 2.8 (Ref Range: 2-11 %) Eosinophils Percent Auto 1.1 (Ref Range: 0-4 %) 1.5 (Ref Range: 0-4 %) 1.1 (Ref Range: 0-4 %) Basophils Percent Auto 0.4 (Ref Range: 0-2 %) 0.3 (Ref Range: 0-2 %) 0.5 (Ref Range: 0-2 %) NRBC Pct Auto 0.0 (Ref Range: 0.0-0.2 /100WBC) 0.0 (Ref Range: 0.0-0.2 /100WBC) 0.0 (Ref Range: 0.0-0.2 /100WBC) Neutrophils Absolute Auto 3.7 (Ref Range: 2.0-8.3 x10*3/uL) 2.9 (Ref Range: 2.0-8.3 x10*3/uL) 3.9 (Ref Range: 2.0-8.3 x10*3/uL) Imm Gran Abs Auto 0.04 H (Ref Range: 0.00-0.03 X10*3/uL) 0.03 (Ref Range: 0.00-0.03 X10*3/uL) 0.03 (Ref Range: 0.00-0.03 X10*3/uL) Lymphocytes Absolute Auto 12.2 H (Ref Range: 1.2-4.9 X10*3/uL) 15.1 H (Ref Range: 1.2-4.9 X10*3/uL) 10.3 H (Ref Range: 1.2-4.9 X10*3/uL) Monocytes Absolute Auto 0.4 (Ref Range: 0.1-1.2 X10*3/uL) 0.5 (Ref Range: 0.1-1.2 X10*3/uL) 0.4 (Ref Range: 0.1-1.2 X10*3/uL) Eosinophils Absolute Auto 0.2 (Ref Range: 0.0-0.4 X10*3/uL) 0.3 (Ref Range: 0.0-0.4 X10*3/uL) 0.2 (Ref Range: 0.0-0.4 X10*3/uL) Basophils Absolute Auto 0.1 (Ref Range: 0.0-0.2 X10*3/uL) 0.1 (Ref Range: 0.0-0.2 X10*3/uL) 0.1 (Ref Range: 0.0-0.2 X10*3/uL) NRBC Abs Auto 0.000 (Ref Range: 0.0-0.012 X10*3/uL) 0.000 (Ref Range: 0.0-0.012 X10*3/uL) 0.000 (Ref Range: 0.0-0.012 X10*3/uL) * Examination: G eneral Examination: GENERAL APPEARANCE: p leasant, well nourished, well developed, in no acute distress, calm and relaxed, obese, man. HEAD: a traumatic, normocephalic. EYES: e [...] sounds normal, no ascites, no organomegaly, no mass, Large umbilical hernia, reducible, pain free. RECTAL EXAM: n ot examined. MUSCULOSKELETAL: e xtremities unremarkable, no clubbing, cyanosis or edema. PERIPHERAL PULSES: n ormal. NEUROLOGIC: a lert and oriented, cranial nerves 2-12 grossly intact, deep tendon reflexes 2+ symmetrical, motor strength normal upper and lower extremities, sensory exam intact. PSYCH: a lert, oriented. Assessment: * Assessment: 1. C hronic lymphocytic leukemia - C91.10 (Primary) N otes :He remains stable at an early stage. No treatment is needed. Surveillance will continue. He is asymptomatic. 2 . O cassi (BMI 30-39.9) - E66.9 N otes :We have discussed his diet and nutrition today. We reviewed his weight loss strategy. We made a plan to lose weight at a rate of one half of a pound per week through a diet restricted in fat calories and sodium combined with regular physical activity. 3 . L ymphocytosis - D72.820 N otes :Lymphocytosis is stable. He is asymptomatic. There is no peripheral adenopathy or splenomegaly. Observation was continued. 4 . I diopathic chronic gout without tophus, unspecified site - M1A.00X0 ? N otes :He says he has not had gout recently. His uric acid level was 7.7.We discussed the rationale for treating him. I have referred him back to primary care or treatment of his hyperuricemia.? He did not wish to begin any a new therapy today 5 . F ormer smoker - Z87.891 N otes :We made a plan to prevent relapse in times of illness or stress. Plan: * Treatment: 2. O cassi (BMI 30-39.9) L AB: PROFILE, RANDOM (COMPREHENSIVE METABOLIC) L AB: LDH L AB: SED RATE (ESR) L AB: CBC WITH AUTO DIFF L AB: Uric Acid 3. L ymphocytosis L AB: PROFILE, RANDOM (COMPREHENSIVE METABOLIC) L AB: LDH L AB: SED RATE (ESR) L AB: CBC WITH AUTO DIFF L AB: Uric Acid 4. I diopathic chronic gout without tophus, unspecified site L AB: PROFILE, RANDOM (COMPREHENSIVE METABOLIC) L AB: LDH L AB: SED RATE (ESR) L AB: CBC WITH AUTO DIFF L AB: Uric Acid * Procedure Codes: * Preventive Medicine: Counseling: C are goal follow-up plan: Counseling for abnormal BMI given Y es Above Normal BMI Follow-up D ietary management education, guidance, and counseling, Dietary needs education S moking/Tobacco Use Patient counseled on the dangers of tobacco use and urged to quit. 0 08/14/2024 * Follow Up: 6 Months (Reason: OV) * Images: * Sign off status: Completed true * Provider: Roseline Espitia MD Date: 0 08/14/2024 Generated for Printi ng/Faguillermog/eTransmitting on: 1 09:58 AM EDT History and Physical Notes * HPI (History of Present Illness) Category Sub-Category Detail Notes COVID-19 Screening Questions Have you had any new onset fever, chills, cough, congestion, sore throat, shortness of breath, muscle aches?: No Examination Category Sub-Category Detail Notes General Examination GENERAL APPEARANCE: pleasant , well nourished, well developed, in no acute distress, calm and relaxed, obese, man HEAD: atraumatic, normocep halic EYES: eomi, perrla, anicte sandra, conjugate EARS: normal NOSE: septum intact NECK/THYROID: no jugular venous di stention, no carotid bruit, thyroid normal HEART: no clicks, gallops, murmurs, or rubs, regular rhythm, S1, S2 normal, no s3, or vascular bruits LUNGS: clear to auscultatio n ABDOMEN: bowel sounds normal, no ascites, no organomegaly, no mass, Large umbilical hernia, reducible, pain free NEUROLOGIC: alert and oriented, cranial nerves 2-12 [...]
--- OUTSIDE RECORDS SUMMARY | 2025-02-12 13:15 | XMS_ITS ---
Author Organization Manav Espitia III, MD Address [address] [place] [address] Care Team Providers Care Yarn Washer Name Role Phone Lennox Smith MD Primary Care Provider Unavaila Dr. Manav Cm III Unavailable [phone] Allergies Allergen (clinical drug ingredient) Drug/Non Drug [...] Date Provider Diagnosis Manav Espitia III, MD [address] [place] [address] DR ALAN Bri [place] [address] 02/12/2025 Manav Espitia Chronic lymphocytic leukemia C91.10 Assessments Encounter Date Diagnosis (ICD Code) Assessment Notes Treatment Notes Treatment Clinical Notes 02/12/2025 Chronic lymphocytic leukemia (ICD-10 - C91.10) He remains stable at an early stage. No treatment is needed. Surveillance will continue. He is asymptomatic. Plan Of Treatment Medication Medication Name Sig Start Date Stop Date Notes Allopurinol 300 MG TAKE 1 TABLET BY MOUTH EVERY DAY Oral Next Appt Details Provider Name:Manav Postne , 09/19/2025 09:30:00 AM, [address] [place] [address] [address], [place], [address], Progress Notes * Darnell SANTIAGODOB:1955 (69 yo M)Acc No.[id number]:02/12/2025 Progress Notes Patient: Darnell SALGADO Provider: Roseline Espitia MD :1955 A ge:69 Y S ex:Male Date:02/12/2025 Address:[address] [place] [address] ISH[place]EL [place]ena [place], [id number] Pcp:Lennox Smith MD Subjective: * Chief Complaints: [...] 2006, Colonoscopy, tubular adenoma, Dr. Manav Wilks, [facility] 12/2020. * Hospitalization/Major Diagno stic Procedure: D [...] x-cigarette smoker Landen kay was born in [facility] in [place], [place]. He is single now. His significant other recently leaving him with one stepdaughter, Aung, who is healthy and well. His daughter works in medical oncology at [employer]. 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 He does not smoke or drink. [...] * Provider: Roseline Espitia MD Date: 0 02/12/2025 Generated for Martini alexis/Cristobal/eTransmitting on: 1 09:58 AM EDT History and [...]
--- OUTSIDE RECORDS SUMMARY | 2025-03-19 05:45 | XMS_ITS ---
Author Organization Manav Espitia III, MD Address [address] [place] [address] Care Team Providers Care Industrial Radiographer Name Role Phone Lennox Smith MD Primary Care Provider Unavaila Dr. Manav Cm III Unavailable Allergies Allergen (clinical drug ingredient) Drug/Non Drug Allergy documented on EMR Reaction Allergy Type Onset Date Status doxycycline Doxycycline hives Drug Allergy Act hamilton REASON FOR VISIT CLL, GOUT, obesity, umbilical hernia Medications Medication SIG (Take, Route, Fr [...] Non-User Ex-cigaret te smoker Vital Signs Temperature 97.3 degrees Fahrenheit 03/19/20 25 Heart Rate 78 /min 03/19/2025 Height 70 in 03/19/2025 Weight 215 lbs 03/19/2025 BMI 30.85 kg/m2 03/19/2025 Encounters Encounter Location Date Provider Diagnosis Manav Espitia III, MD [address] [place] [address] [place] [address] 03/19/2025 Manav Espitia Chronic lymphocytic leukemia C91.10 ; Obesity (BMI 30-39.9) E66.9 ; Former smoker Z87.891 ; Idiopathic chronic gout without tophus, unspecified site M1A.00X0 and Umbilical hernia without obstruction and without gangrene K42.9 Assessments Encounter Date Diagnosis (ICD Code) Assessment Notes Treatment Notes Treatment Clinical Notes 03/19/2025 Chronic lymphocytic leukemia (ICD-10 - C91.10) He remains stable at an early stage. No treatment is needed. Surveillance will continue. He is asymptomatic.. His uric acid has improved. His white blood cell count is slightly lower. No treatment is necessary at this time. 03/19/2025 Obesity (BMI 30-39.9) (ICD-10 - E66.9) We have discussed his diet and nutrition today. We reviewed his weight loss strategy. We made a plan to lose weight at a rate of one half of a pound per week through a diet restricted in fat calories and sodium combined with regular physical activity. 03/19/2025 Former smoker (ICD-10 - Z87.891) We made a plan to prevent relapse in times of illness or stress. 03/19/2025 Idiopathic chronic gout without tophus, unspecified site (ICD-10 - M1A.00X0) He says he has not had gout recently. His uric acid level was 7.7.We discussed the rationale for treating him. I have referred him back to primary care or treatment of his hyperuricemia. He did not wish to begin any a new therapy today 03/19/2025 Umbilical hernia without obstruction and without gangrene (ICD-10 - K42.9) The hernia is easily reducible and asymptomatic. We discussed the appropriate times for which to have attention rendered. Plan Of Treatment Medication Medication Name Sig Start Date Stop Date Notes Allopurinol 300 MG TAKE 1 TABLET BY MOUTH EVERY DAY Oral Pending Test Test Name Order Date PROFILE, RANDOM (COMPREHENSIVE METABOLIC ) 03/19/2025 CBC w DIFF 03/19/2025 Uric Acid 03/19/2025 Next Appt Details Follow Up: 6 Months, Reason: OV Provider Name:Manav Espitia , 09/19/2025 09:30:00 AM, [address] [place] [address] [address], [place], [address], Progress Notes * Darnell SANTIAGO:1955 (69 yo M)Acc No.[id number]:03/19/2025 Progress Notes Patient: Darnell SALGADO Provider: Roseline Espitia MD :1955 A ge:69 Y S ex:Male Date:03/19/2025 Address:[facility] [place], [id number] Pcp:Lennox Smith MD Subjective: * Chief Complaints: * C LLGOUTObesityUmbilical hernia * HPI: C OVID-19 Screening: He returns for ongoing surveillance of his chronic lymphocytic leukemia. His disease is quite indolent and he is being treated with observation. Current blood work was reviewed and the white blood cell count and total lymphocyte count are slightly less than previously. His red blood cells and platelets are within normal limits. He is asymptomatic. He has no adenopathy or splenomegaly. Observation was continued at 6 month intervals.He was instructed to call me if any problems occur. Questions H ave you had any new [...] surgery 2007Colonoscopy, tubular adenoma, Dr. Manav Wilks, [facility] 12/2020 * Hospitalization/Major Diagno stic Procedure: [...] x-cigarette smoker Landen kay was born in [facility] in [place], [place]. He is single now. His significant other recently leaving him with one stepdaughter, Aung, who is healthy and well. His daughter works in medical oncology at [employer]. 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 He does not smoke or drink. [...] Verified] Objective: * Vitals: H t: 70, Wt:215, BMI:30.85, HR:78, Temp:97.3, Wt-k.52. * P ast Orders: Lab:Lactate Dehydrogenase * Collection Date 03/13/2025 05/03/2022 Collection Time 04:16 PM 03:10 PM Order Date 03/13/2025 05/03/2022 Lactate Dehydrogenase 168 (Ref Range: 118-273 U/L) 241 (Ref Range: 118-273 U/L) * Lab:SLIDE REVIEW * Collection Date 03/13/2025 08/08/2024 03/01/2024 Collection Time 04:16 PM 03:13 PM 11:10 AM Order Date 03/13/2025 08/08/2024 03/01/2024 SLIDE REVIEW VERIFIED VERIFIED VERIFIED * Lab:Complete Blood Count Aut o Diff * Collection Date 03/13/2025 08/08/2024 03/01/2024 Collection Time 04:16 PM 03:13 PM 11:10 AM Order Date 03/13/2025 08/08/2024 03/01/2024 White Blood Count 16.1 H (Ref Range: 4.8-10.8 X10*3/uL) 16.6 H (Ref Range: 4.8-10.8 X10*3/uL) 18.9 H (Ref Range: 4.8-10.8 X10*3/uL) Red Blood Count 4.75 (Ref Range: 4.60-5.80 X10*6/uL) 4.96 (Ref Range: 4.60-5.80 X10*6/uL) 4.75 (Ref Range: 4.60-5.80 X10*6/uL) Hemoglobin 15.4 (Ref Range: 14.0-18.0 g/dl) 15.7 (Ref Range: 14.0-18.0 g/dl) 15.4 (Ref Range: 14.0-18.0 g/dl) Hematocrit 43.7 (Ref Range: 42.0-52.0 %) 46.5 (Ref Range: 42.0-52.0 %) 43.7 (Ref Range: 42.0-52.0 %) Mean Corpuscular Volume 92.0 (Ref Range: 80.0-98.0 fL) 93.8 (Ref Range: 80.0-98.0 fL) 92.0 (Ref Range: 80.0-98.0 fL) Mean Corpuscular Hemoglobin 32.4 (Ref Range: 27.0-33.0 pg) 31.7 (Ref Range: 27.0-33.0 pg) 32.4 (Ref Range: 27.0-33.0 pg) Mean Corpuscular HGB Conc 35.2 (Ref Range: 31.0-36.0 g/dl) 33.8 (Ref Range: 31.0-36.0 g/dl) 35.2 (Ref Range: 31.0-36.0 g/dl) Red Cell Distribution Width 13.1 (Ref Range: 11.0-16.0 %) 13.2 (Ref Range: 11.0-16.0 %) 13.1 (Ref Range: 11.0-16.0 %) Platelet Count 161 (Ref Range: 160-400 X10*3/uL) 166 (Ref Range: 160-400 X10*3/uL) 169 (Ref Range: 160-400 X10*3/uL) Mean Platelet Volume 11.7 (Ref Range: 9.4-12.4 fL) 10.9 (Ref Range: 9.4-12.4 fL) 11.5 (Ref Range: 9.4-12.4 fL) Neutrophils Percent Auto 21.8 L (Ref Range: 45-73 %) 22.5 L (Ref Range: 45-73 %) 15.4 L (Ref Range: 45-73 %) Imm Gran Pct Auto 0.2 (Ref Range: 0.0-0.4 %) 0.2 (Ref Range: 0.0-0.4 %) 0.2 (Ref Range: 0.0-0.4 %) Lymphocytes Percent Auto 74.8 H (Ref Range: 20-40 %) 73.5 H (Ref Range: 20-40 %) 80.0 H (Ref Range: 20-40 %) Monocytes Percent Auto 1.6 L (Ref Range: 2-11 %) 2.3 (Ref Range: 2-11 %) 2.6 (Ref Range: 2-11 %) Eosinophils Percent Auto 1.2 (Ref Range: 0-4 %) 1.1 (Ref Range: 0-4 %) 1.5 (Ref Range: 0-4 %) Basophils Percent Auto 0.4 (Ref Range: 0-2 %) 0.4 (Ref Range: 0-2 %) 0.3 (Ref Range: 0-2 %) NRBC Pct Auto 0.1 (Ref Range: 0.0-0.2 /100WBC) 0.0 (Ref Range: 0.0-0.2 /100WBC) 0.0 (Ref Range: 0.0-0.2 /100WBC) Neutrophils Absolute Auto 3.5 (Ref Range: 2.0-8.3 x10*3/uL) 3.7 (Ref Range: 2.0-8.3 x10*3/uL) 2.9 (Ref Range: 2.0-8.3 x10*3/uL) Imm Gran Abs Auto 0.04 H (Ref Range: 0.00-0.03 X10*3/uL) 0.04 H (Ref Range: 0.00-0.03 X10*3/uL) 0.03 (Ref Range: 0.00-0.03 X10*3/uL) Lymphocytes Absolute Auto 12.0 H (Ref Range: 1.2-4.9 X10*3/uL) 12.2 H (Ref Range: 1.2-4.9 X10*3/uL) 15.1 H (Ref Range: 1.2-4.9 X10*3/uL) Monocytes Absolute Auto 0.3 (Ref Range: 0.1-1.2 X10*3/uL) 0.4 (Ref Range: 0.1-1.2 X10*3/uL) 0.5 (Ref Range: 0.1-1.2 X10*3/uL) Eosinophils Absolute Auto 0.2 (Ref Range: 0.0-0.4 X10*3/uL) 0.2 (Ref Range: 0.0-0.4 X10*3/uL) 0.3 (Ref Range: 0.0-0.4 X10*3/uL) Basophils Absolute Auto 0.1 (Ref Range: 0.0-0.2 X10*3/uL) 0.1 (Ref Range: 0.0-0.2 X10*3/uL) 0.1 (Ref Range: 0.0-0.2 X10*3/uL) NRBC Abs Auto 0.020 H (Ref Range: 0.0-0.012 X10*3/uL) 0.000 (Ref Range: 0.0-0.012 X10*3/uL) 0.000 (Ref Range: 0.0-0.012 X10*3/uL) ???Lab:Erythrocyte Sedimentation Rate (Order Date - 03/13/2025) (Collection Date & Time - 03/13/2025 04:16 PM)?ValueReference Range?Erythrocyte Sedimentation [id number] - MM/HR * Lab:Comprehensive Met. Panel * Collection Date 03/13/2025 08/08/2024 03/01/2024 Collection Time 04:16 PM 03:13 PM 11:10 AM Order Date 03/13/2025 08/08/2024 03/01/2024 Sodium 143 (Ref Range: 135-145 mmol/L) 141 (Ref Range: 135-145 mmol/L) 143 (Ref Range: 135-145 mmol/L) Bilirubin Total 0.6 (Ref Range: 0.0-1.0 mg/dL) 0.7 (Ref Range: 0.0-1.0 mg/dL) 0.6 (Ref Range: 0.0-1.0 mg/dL) Aspartate Amino Transferase 22 (Ref Range: 5-37 U/L) 23 (Ref Range: 5-37 U/L) 17 (Ref Range: 5-37 U/L) Alanine Aminotransferase 24 (Ref Range: 0-40 U/L) 31 (Ref Range: 0-40 U/L) 22 (Ref Range: 0-40 U/L) Total Protein 7.0 (Ref Range: 6.5-8.0 g/dL) 7.1 (Ref Range: 6.5-8.0 g/dL) 7.1 (Ref Range: 6.5-8.0 g/dL) Albumin Level 4.6 (Ref Range: 3.5-5.0 g/dL) 4.5 (Ref Range: 3.5-5.0 g/dL) 4.5 (Ref Range: 3.5-5.0 g/dL) Alkaline Phosphatase 76 (Ref Range: 39-117 U/L) 68 (Ref Range: 39-117 U/L) 67 (Ref Range: 39-117 U/L) Potassium 4.0 (Ref Range: 3.3-5.1 mmol/L) 4.6 (Ref Range: 3.3-5.1 mmol/L) 4.4 (Ref Range: 3.3-5.1 mmol/L) Chloride 107 (Ref Range: 96-108 mmol/L) 106 (Ref Range: 96-108 mmol/L) 108 (Ref Range: 96-108 mmol/L) Carbon Dioxide 27 (Ref Range: 22-29 mmol/L) 29 (Ref Range: 22-29 mmol/L) 28 (Ref Range: 22-29 mmol/L) Anion Gap 13 (Ref Range: 12-20) 11 L (Ref Range: 12-20) 11 L (Ref Range: 12-20) Blood Urea Nitrogen 16 (Ref Range: 9-16 mg/dL) 18 H (Ref Range: 9-16 mg/dL) 15 (Ref Range: 9-16 mg/dL) Creatinine 0.88 (Ref Range: 0.5-1.4 mg/dL) 0.80 (Ref Range: 0.5-1.4 mg/dL) 0.96 (Ref Range: 0.5-1.4 mg/dL) Estimated Glomerular Filt Rate > 60 > 60 > 60 Glucose Random 80 (Ref Range: 60-115 mg/dL) 93 (Ref Range: 60-115 mg/dL) 103 (Ref Range: 60-115 mg/dL) Calcium 9.1 (Ref Range: 8.4-10.2 mg/dL) 9.3 (Ref Range: 8.4-10.2 mg/dL) 9.6 (Ref Range: 8.4-10.2 mg/dL) * Lab:Uric Acid * Collection Date 03/13/2025 08/08/2024 Collection Time 04:16 PM 03:13 PM Order Date 03/13/2025 08/08/2024 Uric Acid 6.3 (Ref Range: 3.4-7.0 mg/dL) 7.7 H (Ref Range: 3.4-7.0 mg/dL) * Examination: G eneral Examination: GENERAL APPEARANCE: p leasant, well nourished, well developed, in no acute distress, calm and relaxed: obese: man. HEAD: a traumatic, normocephalic. EYES: e [...] sounds normal, no ascites, no organomegaly, no mass: centripital obesity. RECTAL EXAM: n ot examined. MUSCULOSKELETAL: e [...] is needed. Surveillance will continue. He is asymptomatic.. His uric acid has improved. His white blood cell count is slightly lower. No treatment is necessary at this time. 2 . O besity (BMI 30-39.9) - E66.9 N otes :We have discussed his diet and nutrition today. We reviewed his weight loss strategy. We made a plan to lose weight at a rate of one half of a pound per week through a diet restricted in fat calories and sodium combined with regular physical activity. 3 . F ormer smoker - Z87.891 N otes :We made a plan to prevent relapse in times of illness or stress. 4 . I diopathic chronic gout without tophus, unspecified site - M1A.00X0 ? N otes :He says he has not had gout recently. His uric acid level was 7.7.We discussed the rationale for treating him. I have referred him back to primary care or treatment of his hyperuricemia. He did not wish to begin any a new therapy today 5 . U mbilical hernia without obstruction and without gangrene - K42.9 ? N otes :The hernia is easily reducible and asymptomatic. We discussed the appropriate times for which to have attention rendered. Plan: * Treatment: 2. I diopathic chronic gout without tophus, unspecified site L AB: PROFILE, RANDOM (COMPREHENSIVE METABOLIC) L AB: CBC w DIFF L AB: Uric Acid * Procedure [...] tobacco use and urged to quit. 0 03/19/2025 * Follow Up: 6 Months (Reason: OV) * Images: * Sign off status: Completed true * Provider: Roseline Espitia MD Date: 0 03/19/2025 Generated for Printi ng/Cristobal/eTransmitting on: 1 09:57 AM EDT History and Physical Notes * HPI (History of Present Illness) Category Sub-Category Detail Notes COVID-19 Screening Questions Have you had any new onset fever, chills, cough, congestion, sore throat, shortness of breath, muscle aches?: No Examination Category Sub-Category Detail Notes General Examination GENERAL APPEARANCE: pleasant , well nourished, well developed, in no acute distress, calm and relaxed: obese: man HEAD: atraumatic, normocep halic EYES: eomi, perrla, anicte sandra, conjugate EARS: normal NOSE: septum intact NECK/THYROID: no jugular venous di stention, no carotid bruit, thyroid normal HEART: no clicks, gallops, murmurs, or rubs, regular rhythm, S1, S2 normal, no s3, or vascular bruits LUNGS: clear to auscultatio n ABDOMEN: bowel sounds normal, no ascites, no organomegaly, no mass: centripital obesity NEUROLOGIC: alert and oriented, cranial nerves 2-12 [...]
[2025-05-21 08:54] VITALS: BP 140/92; PULSE 74; RESP 16; TEMP 36.5; O2SAT 98; BMI 30.8
--- NOTE | 2025-05-21 08:54 | MHC.PC.OV ---
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 Accompanied by: Self / Same As Patient Allergies doxycycline Allergy (Severe, Verified 05/21/25 08:54) Hives Medication List - Last Reconciled 05/21/25 by Antonio Osborn MD allopurinol 300 mg PO DAILY atorvastatin (Lipitor) 20 mg PO BEDTIME 90 days magnesium 200 mg PO DAILY multivitamin 1 tab PO DAILY sildenafil (Viagra) 50 mg PO DAILY PRN vitamin B complex 1 cap PO DAILY Tobacco use date assessed: 05/21/25 Fall risk assessment: No Falls in past year Last assessed Fall Risk: 05/21/25 Dental Screening Dental Screen Date: 05/21/25 Did you have a dental visit in the last 12 months?: Yes Did you have a dental problem in the last 6 months where you did not have access to dental care?: No HPI HPI Comments History of Present Illness Details The patient is a 69-year-old male presenting with allergic conjunctivitis and a possible eye infection. He reports a history of seasonal allergies, particularly in the fall when leaves come down, which causes itchy eyes. Recently, he experienced intense itching in one eye, which he frequently rubbed. Despite using contact lenses and eye drops, the eye became increasingly itchy and developed a crusty discharge. He sought advice from Dr. Arias, who suspected it might be an eye infection and recommended he visit the office for further evaluation. The patient denies fever or warmth around the eye. The redness and crustiness have started to clear up, and he has discontinued the use of contacts to prevent further irritation. Medical History: - Essential Hypertension - Gout - Hyperlipidemia Surgical History: - Knee surgery on unspecified date Medications: - Allopurinol 300 mg for Gout - Atorvastatin 20 mg for Hyperlipidemia - Osteo Bi-Flex for joint health - Vitamin B supplement Family History: - Father from a heart attack at age 56 Social History: - Engages in regular physical exercise, going to the gym two to three times a week - Previously active with cycling, but limited by knee surgery recovery - Concerned about blood pressure variability and white coat hypertension [facility] Medical History (Updated 05/21/25 @ 09:20 by Antonio Osborn MD) Hypertension Blepharitis Erectile dysfunction CLL (chronic lymphocytic leukemia) Establishing care with new doctor, encounter for Gout Hyperlipidemia Hx of gout Surgical History History of meniscectomy of left knee H/O colonoscopy Social History Housing: House Patient Tobacco Use Status: Former Tobacco user Years Smoked: 2 years in high school e-Cigarette/Vaping Use: Never Used service: No Current occupational status: employed 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 1. Little interest or pleasure in doing things: not at all 2. Feeling down, depressed, or hopeless: not at all 3. Trouble falling or staying asleep, or sleeping too much: not at all 4. Feeling tired or having little energy: not at all 5. Poor appetite or overeating: not at all 6. Feeling bad about yourself - or that you are a failure or have let yourself or your family down: not at all 7. Trouble concentrating on things, such as reading the newspaper or watching television: not at all 8. Moving or speaking so slowly that other people could have noticed. Or the opposite - being so fidgety or restless that you have been moving around a lot more than usual: not at all 9. Thoughts that you would be better off or of hurting yourself in some way: not at all Total score: 0 Source: Developed by Drs. Manav Mosher, Jennifer Reyes, Renan Ames and colleagues, with an educational lindsey from [employer]. Thrive Questionnaire Date Thrive assessed: 05/21/25 I am a: Patient Within the past 12 months, did the food you bought not last and you didn't have the money to get more?: Never true Within the past 12 months, did you worry whether your food would run out before you got money to buy more?: Never true Do you have trouble paying for medicines?: No Do you have trouble getting transportation to medical appointments?: No Do you have trouble paying your heating and electricity bill?: No Do you have trouble taking care of your child, family member or friend?: No Do you have trouble with day-to-day activities such as bathing, preparing meals, shopping, managing finances, etc.?: No Are you currently unemployed and looking for a job?: No Are you interested in more education?: No THRIVE Score: 0 AUDIT C Alcohol Use Questionnaire (AUDIT-C) 1. How often do you have a drink containing alcohol?: Never 3. How often do you have six or more drinks on one occasion?: Never Total Score: 0 ERICA-7 AMB Questionnaire ERICA-7 Date ERICA - 7 assessed: 05/21/25 Feeling nervous, anxious, or on edge: 0 = Not at all Not being able to stop or control worryin = Not at all Worrying too much about different things: 0 = Not at all Trouble relaxin = Not at all Being so restless that it is hard to sit still: 0 = Not at all Becoming easily annoyed or irritable: 0 = Not at all Feeling afraid as if something awful might happen: 0 = Not at all Total ERICA-7 score (0-4 normal; 5-9 mild; 10-14 moderate; 15-21 severe): 0 Source: Developed by Drs. Manav Mosher, Jennifer Reyes, Renan Ames and colleagues, with an educational lindsey from [employer]. Review of Systems Narrative - Eyes: Reports intense itching and crustiness in the right eye. - General: Denies fever. All systems reviewed & are unremarkable except as reviewed in HPI and above Physical exam (Primary Care) Vital Signs: Last Vital Signs Temp 97.7 F 05/21/25 08:54 Pulse 74 05/21/25 08:54 Resp 16 05/21/25 08:54 BP 140/92 H 05/21/25 08:54 Pulse Ox 98 05/21/25 08:54 Oxygen Delivery Method Room Air 05/21/25 08:54 BMI result Body Mass Index 30.8 Tobacco/Smoking Status: Tobacco use Status Tobacco use date assessed 05/21/25 05/21/25 08:55 Patient Tobacco Use Status Former Tobacco user 05/21/25 08:55 e-Cigarette/Vaping Use Never Used 05/21/25 09:05 PHQ-9: PHQ-9 Score PHQ-9: Total score 0 05/21/25 08:59 Thrive Assessment: Date of Thrive Assessment Date Thrive assessed 05/21/25 05/21/25 08:55 Narrative General: Alert and oriented, Well nourished, No acute distress. Eye: Pupils are equal, round and reactive to light, Intact accommodation, Extraocular movements are intact, Normal conjunctiva, Vision unchanged, Itchy, crusty, possible local infection, advised to hold off contacts for 2-3 weeks, cold compresses recommended. HENT: Normocephalic, Atraumatic, Tympanic membranes are clear, Normal hearing, Oral mucosa is moist, No pharyngeal erythema, Ear canals patent. Respiratory: Lungs CTA bilaterally, No wheeze, Respirations are non-labored. Cardiovascular: Regular rate, Regular rhythm, S1 auscultated, S2 auscultated, No murmur, Good pulses equal in all extremities, Normal peripheral perfusion, No edema. Gastrointestinal: Soft, Non-tender, Non-distended, Normal bowel sounds, No organomegaly. Musculoskeletal: Normal range of motion, Normal strength, No tenderness, No swelling, No deformity, Normal gait, Knee improved post-surgery, advised to resume biking. Integumentary: Warm, Dry, [place], Intact. Neurologic: Alert, Oriented, Normal sensory, Normal motor function, No focal defects, Cranial Nerves II-XII are grossly intact, Normal deep tendon reflexes. Psychiatric: Cooperative, Appropriate mood & affect, Normal judgment. Coding Level of Care Code Est Pt Level 4 (66974) Complex EM visit Add On G2211 Diagnoses Blepharitis of right upper eyelid, unspecified type H01.001 Blepharitis type: unspecified type Laterality: right Eyelid: upper Primary hypertension I10 Hypertension type: primary hypertension Other hyperlipidemia E78.49 Hyperlipidemia type: other hyperlipidemia Chronic gout without tophus, unspecified cause, unspecified site M1A.9XX0 Gout site: unspecified site Gout etiology: unspecified cause Chronicity: chronic Presence of tophus: without tophus CLL (chronic lymphocytic leukemia) C91.10 Assessment & Plan Assessment & Plan (1) Blepharitis: Comment: - Continue with current OTC eye drops to manage symptoms. - Discontinue contact lens use for at least two weeks to allow healing. - Apply cold compresses to the affected eye for symptom relief. Code(s): H01.009 - Unspecified blepharitis unspecified eye, unspecified eyelid Category: Medical Qualifiers: Blepharitis type: unspecified type Laterality: right Eyelid: upper Qualified Code(s): H01.001 - Unspecified blepharitis right upper eyelid (2) Hypertension: Comment: - Initiate Amlodipine 2.5 mg daily in the morning to manage blood pressure. - Discuss potential side effects and the importance of monitoring blood pressure at home. Code(s): I10 - Essential (primary) hypertension Category: Medical Qualifiers: Hypertension type: primary hypertension Qualified Code(s): I10 - Essential (primary) hypertension (3) Hyperlipidemia: Comment: - Continue Atorvastatin 20 mg, taken nightly, to manage cholesterol levels. - Discuss liver monitoring and benefits of statin therapy in preventing cardiovascular events. Code(s): E78.5 - Hyperlipidemia, unspecified Category: Medical Qualifiers: Hyperlipidemia type: other hyperlipidemia Qualified Code(s): E78.49 - Other hyperlipidemia (4) Gout: Comment: - Continue allopurinol 300 mg. Code(s): M10.9 - Gout, unspecified Category: Medical Qualifiers: Gout site: unspecified site Gout etiology: unspecified cause Chronicity: chronic Presence of tophus: without tophus Qualified Code(s): M1A.9XX0 - Chronic gout, unspecified, without tophus (tophi) (5) CLL (chronic lymphocytic leukemia): Comment: - Continue current monitoring with Dr. Espitia every 6 months Code(s): C91.10 - Chronic lymphocytic leukemia of B-cell type not having achieved remission Category: Medical Plan: Health Maintenance: - Blood pressure management initiated with Amlodipine to prevent complications. - Continue physical activity as tolerated to support cardiovascular health. - Monitor cholesterol levels; continue statin therapy to reduce cardiovascular risk. - Encourage weight management and healthy lifestyle practices. Patient was informed and verbally consented to the use of an ambient scribe for clinic note documentation during this visit. Plan During the visit, we discussed the management of the patient's eye symptoms, which are likely due to a combination of allergic conjunctivitis and a mild eye infection. I recommended discontinuing contact lens wear to allow recovery, applying cold compresses for relief, and monitoring the symptoms closely. For his essential hypertension, initiation of Amlodipine 2.5 mg daily was advised to better control his blood pressure, with instructions given for home monitoring and adjustments if needed. Continued hyperlipidemia management with Atorvastatin was reinforced, and the importance of ongoing liver function monitoring was discussed. We explored the benefits of these treatments in reducing cardiovascular risk and the significance of maintaining an active lifestyle and healthy weight. Medications: New amlodipine 2.5 mg PO DAILY 90 tabs 2RF Patient Instructions: - Stop wearing contact lenses for two weeks. - Use cold compresses on the affected eye as needed. - Monitor your eye for worsening infection. - Start taking Amlodipine 2.5 mg daily in the morning. - Continue taking Atorvastatin 20 mg at night. - Check blood pressure regularly at home. - Maintain regular exercise and monitor dietary habits. - Seek care if your eye symptoms worsen.
--- OUTSIDE RECORDS SUMMARY | 2025-05-21 09:57 | XMS_ITS | Patient Health Record ---
Author Organization Manav Espitia III, MD Address [address] [place] [address] Care Team Providers Care Reactor Fueling Supervisor Name Role Phone Lennox Smith MD Primary Care Provider UnavailDr. Manav Guerrero III Unavailable Allergies Allergen (clinical drug ingredient) Drug/Non Drug Allergy documented on EMR Reaction Allergy Type Onset Date Status doxycycline Doxycycline hives Drug Allergy Act [place] Results Component Value Reference Range Notes Complete Blood Count Auto Di ff Reviewed date:08/10/2024 09:01:01 PM Interpretation: Performing Lab:[facility], [address] [place] [phone] Notes/Report: White Blood Count 16.6 4.8-10.8 X10*3/uL [...] Panel Reviewed date:08/10/2024 09:01:01 PM Interpretation: Performing Lab:[address] [phone] Notes/Report: Sodium 141 135-145 mmol/L Potassium 4.6 [...] Acid Reviewed date:08/10/2024 09:01:01 PM Interpretation: Performing Lab:[address] [phone] Notes/Report: Uric Acid 7.7 3.4-7.0 mg/dL SLIDE REVIEW Reviewed date:08/10/2024 09:01:01 PM Interpretation: Performing Lab:[facility], [address] [place] [phone] Notes/Report: SLIDE REVIEW VERIFIED Complete Blood Count Auto Di ff Reviewed date:03/17/2025 04:05:38 PM Interpretation: Performing Lab:[facility], [address] [place] [phone] Notes/Report: White Blood Count 16.1 4.8-10.8 X10*3/uL [...] te Reviewed date:03/17/2025 04:05:38 PM Interpretation: Performing Lab:[facility], [address] [place] [phone] Notes/Report: Erythrocyte Sedimentation Rate 5 0-15 MM/HR Patients with polycythemia and many hemoglobin abnormalities may have depressed sed rates whereas patients with anemia may have elevated sed rates. Comprehensive Met. Panel Reviewed date:03/17/2025 04:05:38 PM Interpretation: Performing Lab:[address] [address] Notes/Report: Sodium 143 135-145 mmol/L Potassium 4.0 [...] Acid Reviewed date:03/17/2025 04:05:38 PM Interpretation: Performing Lab:[address] [phone] Notes/Report: Uric Acid 6.3 3.4-7.0 mg/dL Lactate Dehydrogenase Reviewed date:03/17/2025 04:05:38 PM Interpretation: Performing Lab:[address] [address] Notes/Report: Lactate Dehydrogenase 168 118-273 U/L SLIDE REVIEW Reviewed date:03/17/2025 04:05:38 PM Interpretation: Performing Lab:[address] [phone] Notes/Report: SLIDE REVIEW VERIFIED Reason For Referral [...] Problem Status W/U Status Risk Notes Problem 2281092 Former smoker (Z87.891) Active confirmed We made a plan to prevent relapse in times of illness or stress. Problem 414558553 Tubular adenoma (D36.9) Active confirmed He is scheduled to have colonoscopies every 5 years. He has no gastrointestinal symptoms at the current time. Problem 523106265 Obesity (BMI 30-39.9) (E66.9) Active confirmed We have discuss ed his diet and nutrition today. We reviewed his weight loss strategy. We made a plan to lose weight at a rate of one half of a pound per week through a diet restricted in fat calories and sodium combined with regular physical activity. Problem 74692893 Chronic lymphocytic leukemia (C91.10) Active confirmed He remains stab le at an early stage. No treatment is needed. Surveillance will continue. He is asymptomatic.. His uric acid has improved. His white blood cell count is slightly lower. No treatment is necessary at this time. Problem 371877860 Umbilical hernia without obstruction and without gangrene (K42.9) Active confirmed The hernia is easily reducible and asymptomatic. We discussed the appropriate times for which to have attention rendered. Problem [id number] Idiopathic chronic gout without tophus, unspecified site [...] Date Provider Diagnosis Manav Espitia III, MD [address] [place] [address] [address] [place] [phone] 08/14/2024 Manav Espitia Chronic lymphocytic leukemia C91.10 ; Obesity (BMI 30-39.9) E66.9 ; Lymphocytosis D72.820 ; Idiopathic chronic gout without tophus, unspecified site [id number] and Former smoker Z87.891 Manav Espitia III, MD [address] [place] [address] [address] [place] [phone] 03/19/2025 Manav Omkar Chronic lymphocytic leukemia C91.10 [...] Provider Name:Manav Espitia , 09/19/2025 09:30:00 AM, [address] [place] [address] [place], [place], [phone], Insurance Providers Payer Name Payer Address Payer Phone Subscriber Number Group Number Insured Name Patient Relationship to Insured Coverage Start Date Coverage End Date MEDICARE NGS [address] [place] [phone] [id number] Darnell Santiago Self - patient is the insured [address] [place] [phone] [id number] Darnell Santiago Self - patient is the insured Medical (General) History Medical History History ICD Code gout with hyperuricemia doxycycline allergy varicose veins umbilical hernia Lymphocytosis Osteoarthritis Tubular adenomatous Obesity Varicose veins Surgical History Surgery Date(Month/Year) Colonoscopy, tubular adenoma , Dr. Manav Wilks, [facility] 12/2020 Left knee meniscus surgery 2006
--- OUTSIDE RECORDS SUMMARY | 2025-05-21 09:58 | XMS_ITS | Patient Health Record ---
Author Organization [facility] Address [address] [place] [address] Care Team Providers Care Graphic Designer Name Role Phone Luis (RETIRED) Lennox MABRY Primary Care Provide Paulino Ulloa Jr Unavailable [phone] Reason For Referral No Information Medications Medication SIG (Take, Route, Frequency, Duration) Notes Start Date End Date Status Allopurinol 100 MG Orally A ctive Multivitamin Active MiraLax (colon prep) 8.3 ounce ((238) grams mixed with Gatorade or Crystal Light orally begin at 5:00 p.m. the day before the procedure; Duration: 1 day 12/16/2020 Active Fish Oil Active [...] Problem Status W/U Status Risk Notes Problem Colon cancer screening (627455350) Colon cancer screening (Z12.11) Active confirmed Problem Pre-procedure evaluation check (223258657) Encounter for other preprocedural examination (Z01.818) Active confirmed Problem Long-term current use of drug therapy (849660500) Long-term current use of high risk medication other than anticoagulant (Z79.899) Active confirmed Plan Of Treatment Future Test Test Name Order Date COLONOSCOPY 12/16/2020 Insurance Providers Payer Name Payer Address Payer Phone Subscriber Number Group Number Insured Name Patient Relationship to Insured Coverage Start Date Coverage End Date [facility] [address] [place] [phone] [id number] KERRI LANDAVERDE Self - patient is the insured Medical (General) History Medical History History ICD Code gout Surgical History Surgery Date(Month/Year) [place] Left
== END 2025-05-21 09:20 | disposition home or self-care (01) ==
LOC: HO.HMCHD 08:59
PROVIDERS: PCP Student in an Organized Health Care Education/Training Program; Visit Provider Student in an Organized Health Care Education/Training Program
DX: H01.001 Unspecified blepharitis right upper eyelid (principal); I10 Essential (primary) hypertension; E78.49 Other hyperlipidemia; M1A.9XX0 Chronic gout, unspecified, without tophus (tophi); C91.10 Chronic lymphocytic leukemia of B-cell type not having achieved remission

== ENCOUNTER → 2025-05-21 08:58 | Outpatient (BNVA) | payer MEDICARE, OTHER, SELFPAY | PROVIDERS: PCP Student in an Organized Health Care Education/Training Program; Visit Provider Student in an Organized Health Care Education/Training Program | DX: H01.001 Unspecified blepharitis right upper eyelid (principal); I10 Essential (primary) hypertension; E78.49 Other hyperlipidemia; M1A.9XX0 Chronic gout, unspecified, without tophus (tophi); C91.10 Chronic lymphocytic leukemia of B-cell type not having achieved remission; Z79.899 Other long term (current) drug therapy; Z13.30 Encounter for screening examination for mental health and behavioral disorders, unspecified; Z13.39 Encounter for screening examination for other mental health and behavioral disorders | CPT/HCPCS: 96127; 99212 ==